=== PATIENT | male | born 1940 | race Caucasian/White ===

== ENCOUNTER 2023-03-29 10:06 | Emergency (ER) | payer MEDICARE ==
--- NOTE | 2023-03-29 10:21 | ERPHSYRPT ---
- History of Present Illness Time Seen by Provider: 03/29/23 10:20 Historian: patient, family Exam Limitations: no limitations Physician History: This is an 82-year-old white male patient brought to the emergency department from the physical therapy department with his daughter after the patient was experiencing shortness of breath and numbness to his right upper extremity in the physical therapy department. He was there to receive physical therapy post knee surgery. He was also found to be hypotensive briefly, with a systolic blood pressure in the 90s. He arrives to the emergency department and his systolic blood pressure had normalized. However, he has persistent shortness of breath and right arm numbness. A twelve-lead EKG was evaluated interpreted by marilu navarro as a STEMI in the inferior leads. We started the STEMI protocol and repeated the twelve-lead EKG which showed persistence of what I felt was a STEMI. I contacted the emergency department at [facility], at the request of the family, and sent the twelve-lead EKG x2 to Dr. Thomas, the emergency department physician on. The winderman did evaluate the twelve-lead EKG. Although, he felt that there was no acute STEMI, they accepted the patient in transfer. Patient has a history of atrial fibrillation hypertension and is on Coumadin. He takes his Coumadin every evening. Timing/Duration: today Quality: pressure Location: substernal, central (Chest pressure) Chest Pain Radiation: arm (Right arm numbness) Severity of Pain-Max: mild Severity of Pain-Current: mild Modifying Factors: Improves With: nothing Associated Symptoms: shortness of breath Prior Chest Pain/Cardiac Workup: cardiac cath Nitro Today/Relief: 0.4 mg x 1, provided by ED Aspirin Treatment Today: 81 mg x 4, provided by ED Allergies/Adverse Reactions: No Known Drug Allergies Allergy (Unverified 03/29/23 10:24) Home Medications: Warfarin Sodium 5 mg [Jantoven] 0 mg PO UD 03/02/22 [History] dilTIAZem HCL [Diltiazem 24Hr ER] 240 mg PO DAILY 03/02/22 [History] hydroCHLOROthiazide [Hydrochlorothiazide] 12.5 mg PO DAILY 03/02/22 [History] lisinopriL [Lisinopril] 40 mg PO DAILY 03/02/22 [History] Oxycodone / APAP 10/325 mg [Oxycodone-Acetaminophen 10-325] 1 tab PO Q4- 6HPRN PRN 03/29/23 [History] Travel Risk - International Travel Have you traveled outside of the country in past 3 weeks: No - Coronavirus Screening Are you exhibiting any of the following symptoms?: No Close contact with a COVID-19 positive Pt in past 14-21 Days: No - Review of Systems Constitutional: No Symptoms Eyes: No Symptoms Ears, Nose, & Throat: No Symptoms Respiratory: Dyspnea Cardiac: Chest Pain Abdominal/Gastrointestinal: No Symptoms (Scribed as a light pressure) Genitourinary Symptoms: No Symptoms Musculoskeletal: No Symptoms Skin: No Symptoms Neurological: Parasthesia (Right arm numbness) Psychological: No Symptoms Endocrine: No Symptoms Hematologic/Lymphatic: No Symptoms Immunological/Allergic: No Symptoms All Other Systems: Reviewed and Negative - Past Medical History Pertinent Past Medical History: Yes Neurological History: No Pertinent History Cardiac History: Arrhythmia, Hypertension Respiratory History: No Pertinent History Endocrine Medical History: No Pertinent History Musculoskeletal History: Arthritis GI Medical History: No Pertinent History History: No Pertinent History Psycho-Social History: No Pertinent History Male Reproductive Disorders: No Pertinent History Other Medical History: A-FIB - Past Surgical History Past Surgical History: Yes - Nursing Vital Signs Nursing Vital Signs: Initial Vital Signs Temperature 97 F 03/29/23 10:08 Pulse Rate 102 H 03/29/23 10:08 Respiratory Rate 12 03/29/23 10:08 Blood Pressure 137/88 03/29/23 10:08 O2 Sat by Pulse Oximetry 98 03/29/23 10:08 Pain Scale Pain Intensity 7 - Physical Exam General Appearance: no apparent distress, alert, anxiety, obese Eye Exam: PERRL/EOMI, eyes nml inspection Ears, Nose, Throat Exam: normal ENT inspection, moist mucous membranes Neck Exam: normal inspection, non-tender, supple, full range of motion Respiratory Exam: normal breath sounds, chest tenderness, lungs clear (Scribed as a light pressure), airway intact, No respiratory distress Cardiovascular Exam: irregular Gastrointestinal/Abdomen Exam: soft, normal bowel sounds, No tenderness Back Exam: normal inspection, normal range of motion, No CVA tenderness, No vertebral tenderness Extremity Exam: normal inspection, normal range of motion, pelvis stable Neurologic Exam: alert, oriented x 3, cooperative, 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 nml as tested, normal mood/affect, nml cerebellar function, nml station & gait, sensation nml Skin Exam: normal color, warm, dry Lymphatic Exam: No adenopathy SpO2 Interpretation: normal O2 Delivery: Room Air - Course Nursing assessment & vital signs reviewed: Yes EKG Interpreted by Me: RATE (95), Sinus Rhythm, LAFB, Right Bundle Branch Block, ST Elev (Finger leads), Other (There appears to be ST elevation in the inferior leads on this first twelve-lead EKG.) Ordered Tests: Medication Summary Discontinued Medications Generic Name Dose Route Start Last Admin Trade Name Freq PRN Reason Stop Dose Admin Aspirin 324 mg 03/29/23 10:27 03/29/23 10:31 Aspirin 81 Mg Tab.Chew PO 03/29/23 10:28 324 mg STAT ONE Administration Heparin Sodium (Beef Lung) 5,000 unit 03/29/23 10:28 03/29/23 10:32 Heparin 5000 Units/0.5 Ml 5,000 Unit/0.5 Ml Syr IV 03/29/23 10:29 5,000 unit STAT ONE Administration Nitroglycerin/Dextrose 250 mls @ 1.5 mls/hr 03/29/23 10:27 Ntg 0.2mg/Ml In D5w Glass IV 04/28/23 10:26 .Q24H PRN CHEST PAIN Protocol 5 MCG/MIN Nitroglycerin 0.4 mg 03/29/23 10:42 03/29/23 10:30 Nitroglycerin 0.4 Mg (Ed) 0.4 Mg Tab.Subl SL 03/29/23 10:43 0.4 mg STAT ONE Administration Lab/Rad Data: Laboratory Result Diagrams 03/29/23 10:27 03/29/23 10:20 Laboratory Results 03/29/23 03/29/23 03/29/23 Range/Units 10:27 10:20 10:20 WBC 8.4 (4.0-10.5) x10^3/uL RBC 4.05 L (4.1-5.6) x10^6/uL Hgb 13.0 (12.5-18.0) g/dL Hct 38.8 L (42-50) % MCV 95.8 (78-100) fL MCH 32.1 H (26-32) pg MCHC 33.5 (32-36) g/dL RDW 13.0 (11.5-14.0) % Plt Count 443 (150-450) x10^3/uL MPV 9.4 (7.5-11.0) fL Gran % 73.2 H (36.0-66.0) % Immature Gran % (Auto) 0.4 (0.00-0.4) % Nucleat RBC Rel Count 0.0 (0.00-0.1) % Eos # (Auto) 0.11 (0-0.5) x10^3/uL Immature Gran # (Auto) 0.03 (0.00-0.03) x10^3u/L Absolute Lymphs (auto) 1.28 (1.0-4.6) x10^3/uL Absolute Monos (auto) 0.79 (0.0-1.3) x10^3/uL Absolute Nucleated RBC 0.00 (0.00-0.01) x10^3u/L Lymphocytes % 15.3 L (24.0-44.0) % Monocytes % 9.4 (0.0-12.0) % Eosinophils % 1.3 (0.00-5.0) % Basophils % 0.4 (0.0-0.4) % Absolute Granulocytes 6.14 (1.4-6.9) x10^3/uL Basophils # 0.03 (0-0.4) x10^3/uL PT 23.5 H (9.4-12.5) SECONDS INR 2.29 (0.8-3.0) APTT 40.9 H (25.1-36.5) SECONDS D-Dimer 6.14 H* (0.0-0.50) mg/L Sodium (137-145) mmol/L Potassium (3.5-5.1) mmol/L Chloride (98-107) mmol/L Carbon Dioxide (22-30) mmol/L Anion Gap (5-15) MEQ/L BUN (9-20) mg/dL Creatinine (0.66-1.25) mg/dL Estimated GFR ML/MIN Glucose (74-106) mg/dL Calcium (8.4-10.2) mg/dL Total Bilirubin (0.2-1.3) mg/dL AST (17-59) U/L ALT (0-50) U/L Alkaline Phosphatase (38-126) U/L Troponin I < 0.012 (0.000-0.034) ng/mL NT-Pro-B Natriuret Pep (<300) pg/mL Serum Total Protein (6.3-8.2) g/dL Albumin (3.5-5.0) g/dL 03/29/23 Range/Units 10:20 WBC (4.0-10.5) x10^3/uL RBC (4.1-5.6) x10^6/uL Hgb (12.5-18.0) g/dL Hct (42-50) % MCV (78-100) fL MCH (26-32) pg MCHC (32-36) g/dL RDW (11.5-14.0) % Plt Count (150-450) x10^3/uL MPV (7.5-11.0) fL Gran % (36.0-66.0) % Immature Gran % (Auto) (0.00-0.4) % Nucleat RBC Rel Count (0.00-0.1) % Eos # (Auto) (0-0.5) x10^3/uL Immature Gran # (Auto) (0.00-0.03) x10^3u/L Absolute Lymphs (auto) (1.0-4.6) x10^3/uL Absolute Monos (auto) (0.0-1.3) x10^3/uL Absolute Nucleated RBC (0.00-0.01) x10^3u/L Lymphocytes % (24.0-44.0) % Monocytes % (0.0-12.0) % Eosinophils % (0.00-5.0) % Basophils % (0.0-0.4) % Absolute Granulocytes (1.4-6.9) x10^3/uL Basophils # (0-0.4) x10^3/uL PT (9.4-12.5) SECONDS INR (0.8-3.0) APTT (25.1-36.5) SECONDS D-Dimer (0.0-0.50) mg/L Sodium 135 L (137-145) mmol/L Potassium 3.9 (3.5-5.1) mmol/L Chloride 101 (98-107) mmol/L Carbon Dioxide 24 (22-30) mmol/L Anion Gap 14.6 (5-15) MEQ/L BUN 15 (9-20) mg/dL Creatinine 0.92 (0.66-1.25) mg/dL Estimated GFR > 60.0 ML/MIN Glucose 122 H (74-106) mg/dL Calcium 9.4 (8.4-10.2) mg/dL Total Bilirubin 0.40 (0.2-1.3) mg/dL AST 21 (17-59) U/L ALT 18 (0-50) U/L Alkaline Phosphatase 89 (38-126) U/L Troponin I (0.000-0.034) ng/mL NT-Pro-B Natriuret Pep 212 (<300) pg/mL Serum Total Protein 6.7 (6.3-8.2) g/dL Albumin 4.0 (3.5-5.0) g/dL - Progress Progress: re-examined, unchanged Air Movement: good Progress Note: 03/29/23 10:50 Repeat, second twelve-lead EKG showed heart rate of 94 bpm in sinus rhythm with 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 There appears to me to be persistent ST elevation in leads II, III, aVF. This patient's medical issue is 1 of high complexity. Level complexity in the work-up performed is based on review of the patient's past medical history, review the patient's medication list, review of the patient's drug allergy list, history of present illness and physical findings on examination. I reviewed t he twelve-lead EKG and interpreted as a STEMI. We repeated the twelve-lead EKG and there is persistence of this ST elevation on my interpretation. I discussed with emergency room physician Dr. Thomas, at [facility] in [facility]. That this is where the family wanted the patient to be taken to. The winderman reviewed the twelve-lead EKG per Dr. Thomas, and the winderman felt this is not a STEMI. However they do accept the patient in transfer. The patient received 4 baby aspirin, heparin 5000 units IV bolus and 1 nitroglycerin sublingually. 0.4 mg. Blood Culture(s) Obtained: No Antibiotics given: No Counseled pt/family regarding: lab results, diagnosis Medical Desision Making - Independent Historian Additional History obtained from: Child - Discussion of managment Care discussed with:: specialist (Emergency room physician at [facility]) Reviewed:: Test results, Need for additional workup ( Ivonne) Will see patient: in ED - Diagnostic Testing Diagnostic test were ordered, analyzed, and reviewed by me: Yes - Risk of complications The pt has a high risk of morbidity or mortality based on: Decision regarding hospitilization or escalation of hosp level of care - Departure Departure Disposition: Transfer Clinical Impression: Chest pain, Right arm numbness, Shortness of breath Condition: Fair Critical Care Time: Yes Critical Care Time(excluding separately billable procedures): Critical 30-74 mins (30 minutes) Referrals: MARCELA BINGHAM MD [Primary Care Provider] - Follow up/PCP as directed
[2023-03-29] MEDS ORDERED: Ntg 0.2MG/Ml in D5W GLASS*** 250 ML IV PRN (10:27)
[2023-03-29] MEDS ORDERED: BABY ASPIRIN 81 MG CHEW PO ONE (10:27)
[2023-03-29] MEDS ORDERED: HEPARIN 5000 UNITS/0.5 ML (HIGH RISK MED) IV ONE (10:28)
[2023-03-29 10:33] VITALS: TEMP 97; O2SAT 98
[2023-03-29 10:37] LABS: Absolute Neutrophil Ct (ANC) 6.14 x10^3/uL (1.4-6.9); BASOPHIL % 0.4 % (0.0-0.4); Basophil (Absolute #) 0.03 x10^3/uL (0-0.4); Eosinophil % 1.3 % (0.00-5.0); Eosinophil (Absolute #) 0.11 x10^3/uL (0-0.5); Hematocrit 38.8 % (42-50); IMMATURE GRAN # 0.03 x10^3u/L (0.00-0.03); IMMATURE GRAN % 0.4 % (0.00-0.4); Lymphocyte (Absolute #) 1.28 x10^3/uL (1.0-4.6); Lymphocytes % 15.3 % (24.0-44.0); Mean Cell Volume 95.8 fL (78-100); Mean Corpuscular Hemoglobin 32.1 pg (26-32); Mean Corpuscular Hgb Concent. 33.5 g/dL (32-36); Mean Platelet Volume 9.4 fL (7.5-11.0); Monocyte (Absolute #) 0.79 x10^3/uL (0.0-1.3); Monocytes % 9.4 % (0.0-12.0); Neutrophil % 73.2 % (36.0-66.0); Platelet Count 443 x10^3/uL (150-450); Red Blood Count 4.05 x10^6/uL (4.1-5.6); White Blood Count 8.4 x10^3/uL (4.0-10.5)
[2023-03-29] MEDS ORDERED: Nitrostat 0.4 MG (ED) SL ONE (10:42)
[2023-03-29 10:45] VITALS: BP 136/72; PULSE 111; RESP 18
[2023-03-29 11:01] LABS: INR 2.29 (0.8-3.0); PROTIME 23.5 SECONDS (9.4-12.5); PTT 40.9 SECONDS (25.1-36.5)
[2023-03-29 11:02] LABS: ALKALINE PHOSPHATASE 89 U/L (38-126); ANION GAP 14.6 MEQ/L (5-15); BLOOD UREA NITROGEN 15 mg/dL (9-20); CHLORIDE 101 mmol/L (98-107); Calcium 9.4 mg/dL (8.4-10.2); Carbon Dioxide 24 mmol/L (22-30); Creatinine 1 0.92 mg/dL (0.66-1.25); D-DIMER QUANTITATIVE 6.14 mg/L (0.0-0.50); EST GLOMERULAR FILTRATION RATE > 60.0 ML/MIN; Glucose 122 mg/dL (74-106); NT PRO BNPII 212 pg/mL (<300); Potassium 3.9 mmol/L (3.5-5.1); SGOT/AST 21 U/L (17-59); SGPT/ALT 18 U/L (0-50); SODIUM 135 mmol/L (137-145); Total Protein 6.7 g/dL (6.3-8.2)
== END 2023-03-29 10:30 | disposition short-term general hospital (02) ==
LOC: ED 10:06
DX: R07.9 Chest pain, unspecified (principal); R20.2 Paresthesia of skin; R06.02 Shortness of breath; I21.3 ST elevation (STEMI) myocardial infarction of unspecified site; I10 Essential (primary) hypertension; Z79.01 Long term (current) use of anticoagulants; Z79.891 Long term (current) use of opiate analgesic; Z79.899 Other long term (current) drug therapy
CPT/HCPCS: 36000; 36415; 80053; 83880; 84484; 85025; 85379; 85610; 85730; 93005; 93041; 94760; 96374; 99285; 99291; J1644; A9270-GY

== ENCOUNTER 2023-04-08 00:17 | Observation (INO) | payer MEDICARE ==
[2023-04-08] MEDS ORDERED: Nitrostat 0.4 MG (ED) SL ONE (00:40)
--- NOTE | 2023-04-08 00:40 | ERPHSYRPT ---
- History of Present Illness Time Seen by Provider: 04/08/23 00:23 Historian: patient Exam Limitations: no limitations Physician History: Pt states he has had intermittent chest tightness for the past 2 weeks. For the past 2 hours pt has had a non-priductive cough and BP of 210 systolic. Pt denies headache, vomiting, dysuria but admits to shortness of air at times. Aspirin Treatment Today: unknown Allergies/Adverse Reactions: No Known Drug Allergies Allergy (Verified 04/08/23 00:27) Home Medications: Warfarin Sodium 5 mg [Jantoven] 0 mg PO UD 03/02/22 [History] dilTIAZem HCL [Diltiazem 24Hr ER] 240 mg PO DAILY 03/02/22 [History] lisinopriL [Lisinopril] 20 mg PO DAILY 03/02/22 [History] Acetaminophen 325 mg [Tylenol 325 mg] 650 mg PO Q6H PRN PRN 04/08/23 [History] Hx Tetanus, Diphtheria Vaccination/Date Given: No Hx Influenza Vaccination/Date Given: No Hx Pneumococcal Vaccination/Date Given: No Travel Risk - Vaccine Status Have you recieved a Covid-19 vaccination: Yes Supervisor Conditioning Yard: Unknown - Vaccination Dates Dates if Unknown: 2021 - Review of Systems Ears, Nose, & Throat: No Throat Pain Respiratory: Cough, Dyspnea Cardiac: Other (chest tightness) Abdominal/Gastrointestinal: No Abdominal Pain, No Nausea, No Vomiting Genitourinary Symptoms: No Dysuria Neurological: No Headache - Past Medical History Pertinent Past Medical History: Yes Neurological History: No Pertinent History Cardiac History: Arrhythmia, Hypertension Respiratory History: No Pertinent History Endocrine Medical History: No Pertinent History Musculoskeletal History: Arthritis GI Medical History: No Pertinent History History: No Pertinent History Psycho-Social History: No Pertinent History Male Reproductive Disorders: No Pertinent History Other Medical History: A-FIB - Past Surgical History Past Surgical History: Yes Neuro Surgical History: No Pertinent History Cardiac: No Pertinent History Respiratory: No Pertinent History Gastrointestinal: No Pertinent History Genitourinary: No Pertinent History Musculoskeletal: Orthopedic Surgery Male Surgical History: No Pertinent History Other Surgical History: Left knee replacement - Social History Smoking Status: Former smoker Exposure to second hand smoke: No Drug Use: none Patient Lives Alone: Yes - Nursing Vital Signs Nursing Vital Signs: Initial Vital Signs Temperature 97.8 F 04/08/23 00:27 Pulse Rate 96 H 04/08/23 00:27 Respiratory Rate 20 04/08/23 00:27 Blood Pressure 171/100 04/08/23 00:27 O2 Sat by Pulse Oximetry 97 04/08/23 00:27 Pain Scale Pain Intensity 8 - Physical Exam General Appearance: alert, anxiety Eye Exam: PERRL/EOMI Ears, Nose, Throat Exam: TMs normal, pharynx normal Neck Exam: normal inspection Respiratory Exam: lungs clear Cardiovascular Exam: normal heart sounds Gastrointestinal/Abdomen Exam: normal bowel sounds Extremity Exam: swelling (swelling and warmth of left knee) Neurologic Exam: alert, cooperative SpO2 Interpretation: normal SpO2: 97 O2 Delivery: Room Air - Course Nursing assessment & vital signs reviewed: Yes EKG Interpreted by Me: RATE (93), Sinus Rhythm, Left Quimby Deviation, Right Bundle Branch Block, Other (QTc = 486; LAFB) - Radiology Exams Chest X-ray Interpretation: Interpreted by me, No Pneumonia - CT Exams Chest CT Interpretation: Tele-radiologist Report (Negative study for pulmonary embolism. Bilateral pulmonary nodules as detailed, nodule of concern is seen on right mid lung lobe medial segment nodule with irregular outlines measuring 11 x 10 mm is seen on axial image , follow up is needed. Left adrenal 2.7 x 2 cm lesion.) Ordered Tests: Active Orders 24 hr Category Date Time Status Bedrest ROUTINE Activity 04/08/23 04:05 Active Call Admit Doctor for Orders ON ADMISSION Care 04/08/23 04:03 Active Foot Piece Assembler STAT Care 04/08/23 00:41 Active Code Status Order ROUTINE Care 04/08/23 04:03 Active EKG-ER Only STAT Care 04/08/23 00:40 Active IV Insertion STAT Care 04/08/23 00:40 Active Oxygen-ED Only Nasal Cannula 2 lpm Care 04/08/23 00:[address] in Observation ROUTINE Care 04/08/23 04:03 Active Pulse Oximetry (ED) STAT Care 04/08/23 00:40 Active Telemetry q6h Care 04/08/23 04:03 Active Heart-Healthy Diet Diet 04/08/23 Breakfast Active CHEST 2 VIEWS (PA AND LAT) Stat Exams 04/08/23 00:41 Taken CHEST WITH CONTRAST [CT] Stat Exams 04/08/23 01:25 Completed BLOOD CULTURE Stat Lab 04/08/23 01:10 Ordered CBC W DIFF Stat Lab 04/08/23 00:50 Completed CMP Stat Lab 04/08/23 00:50 Completed D-DIMER QUANTITATIVE Stat Lab 04/08/23 00:50 Completed Manual Differential NC Stat Lab 04/08/23 00:50 Completed PROTIME WITH INR Stat Lab 04/08/23 00:50 Completed PTT Stat Lab 04/08/23 00:50 Completed TROPONIN AM.LAB Lab 04/09/23 04:00 Ordered TROPONIN Q4H Lab 04/08/23 00:50 Completed TROPONIN Q4H Lab 04/08/23 04:45 Ordered TROPONIN Q4H Lab 04/08/23 08:45 Ordered EKG REPEAT IN AM RT 04/08/23 04:03 Active Oxygen Nasal Cannula 2 lpm RT 04/08/23 04:03 Active Medication Summary Generic Name Dose Route Start Last Admin Trade Name Freq PRN Reason Stop Dose Admin Sodium Chloride 1,000 mls @ 100 mls/hr 04/08/23 00:45 04/08/23 01:05 Sodium Chloride 0.9% 1000 Ml IV 05/08/23 00:44 100 mls/hr .Q10H ANDRE Administration Clindamycin HCl/Dextrose 600 mg in 50 mls @ 100 mls/hr 04/08/23 06:00 Clindamycin-D5w 600 Mg/50 Ml IV 05/08/23 05:59 Q8HT ANDRE Discontinued Medications Generic Name Dose Route Start Last Admin Trade Name Freq PRN Reason Stop Dose Admin Clindamycin HCl/Dextrose 900 mg in 50 mls @ 100 mls/hr 04/08/23 00:42 04/08/23 01:43 Clindamycin-D5w 900 Mg/50 Ml IV 04/08/23 01:11 Infused STAT STA Infusion Clindamycin HCl/Dextrose Confirm 04/08/23 01:04 Clindamycin-D5w 900 Mg/50 Ml Administered 04/08/23 01:05 Dose 900 mg in 50 mls @ ud IV .STK-MED ONE Lorazepam 0.5 mg 04/08/23 03:59 04/08/23 04:07 Lorazepam 0.5 Mg Tablet PO 04/08/23 04:00 Not Given STAT ONE Lorazepam Confirm 04/08/23 04:03 Lorazepam 1 Mg Tablet Administered 04/08/23 04:04 Dose 1 mg .ROUTE .STK-MED ONE Lorazepam 0.5 mg 04/08/23 04:07 04/08/23 04:08 Lorazepam 1 Mg Tablet PO 04/08/23 04:08 0.5 mg STAT ONE Administration Nitroglycerin 0.4 mg 04/08/23 00:40 04/08/23 00:55 Nitroglycerin 0.4 Mg (Ed) 0.4 Mg Tab.Subl SL 04/08/23 00:41 0.4 mg STAT ONE Administration Lab/Rad Data: Laboratory Result Diagrams 04/08/23 00:50 04/08/23 00:50 Laboratory Results 04/08/23 04/08/23 04/08/23 Range/Units 00:50 00:50 00:50 WBC (4.0-10.5) x10^3/uL RBC (4.1-5.6) x10^6/uL Hgb (12.5-18.0) g/dL Hct (42-50) % MCV (78-100) fL MCH (26-32) pg MCHC (32-36) g/dL RDW (11.5-14.0) % Plt Count (150-450) x10^3/uL MPV (7.5-11.0) fL Segmented Neutrophils (36.-66.) % Lymphocytes (Manual) (24-44) % Monocytes (Manual) (0.0-12.0) % Atypical Lymphocytes % Platelet Estimate (NORMAL) RBC Morphology PT 33.8 H (9.4-12.5) SECONDS INR 3.39 H (0.8-3.0) APTT 47.0 H (25.1-36.5) SECONDS D-Dimer 2.79 H* (0.0-0.50) mg/L Sodium 134 L (137-145) mmol/L Potassium 3.8 (3.5-5.1) mmol/L Chloride 103 (98-107) mmol/L Carbon Dioxide 24 (22-30) mmol/L Anion Gap 10.8 (5-15) MEQ/L BUN 11 (9-20) mg/dL Creatinine 0.79 (0.66-1.25) mg/dL Estimated GFR > 60.0 ML/MIN Glucose 128 H (74-106) mg/dL Calcium 8.6 (8.4-10.2) mg/dL Total Bilirubin 0.40 (0.2-1.3) mg/dL AST 36 (17-59) U/L ALT 30 (0-50) U/L Alkaline Phosphatase 83 (38-126) U/L Troponin I < 0.012 (0.000-0.034) ng/mL Serum Total Protein 6.6 (6.3-8.2) g/dL Albumin 3.8 (3.5-5.0) g/dL 04/08/23 Range/Units 00:50 WBC 4.8 (4.0-10.5) x10^3/uL RBC 3.79 L (4.1-5.6) x10^6/uL Hgb 12.0 L (12.5-18.0) g/dL Hct 35.8 L (42-50) % MCV 94.5 (78-100) fL MCH 31.7 (26-32) pg MCHC 33.5 (32-36) g/dL RDW 12.8 (11.5-14.0) % Plt Count 303 (150-450) x10^3/uL MPV 9.2 (7.5-11.0) fL Segmented Neutrophils 62 (36.-66.) % Lymphocytes (Manual) 28 (24-44) % Monocytes (Manual) 8 (0.0-12.0) % Atypical Lymphocytes 2 % Platelet Estimate NORMAL (NORMAL) RBC Morphology NORMAL PT (9.4-12.5) SECONDS INR (0.8-3.0) APTT (25.1-36.5) SECONDS D-Dimer (0.0-0.50) mg/L Sodium (137-145) mmol/L Potassium (3.5-5.1) mmol/L Chloride (98-107) mmol/L Carbon Dioxide (22-30) mmol/L Anion Gap (5-15) MEQ/L BUN (9-20) mg/dL Creatinine (0.66-1.25) mg/dL Estimated GFR ML/MIN Glucose (74-106) mg/dL Calcium (8.4-10.2) mg/dL Total Bilirubin (0.2-1.3) mg/dL AST (17-59) U/L ALT (0-50) U/L Alkaline Phosphatase (38-126) U/L Troponin I (0.000-0.034) ng/mL Serum Total Protein (6.3-8.2) g/dL Albumin (3.5-5.0) g/dL - Progress Progress: unchanged Antibiotics given: Yes Discussed with DrSiria: Other (Spoke with Dr. Collado - obs) Will see patient in: hospital (observation) Counseled pt/family regarding: lab results, diagnosis, rad results Medical Desision Making - Diagnostic Testing Diagnostic test were ordered, analyzed, and reviewed by me: Yes Radiological Interpretation: Teleradiologist Report - Departure Departure Disposition: Observation Clinical Impression: Chest tightness, Cellulitis of left knee Condition: Stable Critical Care Time: No [facility]errals: [facility] [Primary Care Provider] - Follow up/PCP as directed
[2023-04-08] MEDS ORDERED: CLINDAMYCIN-D5W 900 MG/50 ML*** 900 MG/50 ML BAG IV STA (00:42)
[2023-04-08 01:00] LABS: Hematocrit 35.8 % (42-50); Mean Cell Volume 94.5 fL (78-100); Mean Corpuscular Hemoglobin 31.7 pg (26-32); Mean Corpuscular Hgb Concent. 33.5 g/dL (32-36); Mean Platelet Volume 9.2 fL (7.5-11.0); Platelet Count 303 x10^3/uL (150-450); Red Blood Count 3.79 x10^6/uL (4.1-5.6); Red Cell Distribution Width 12.8 % (11.5-14.0); White Blood Count 4.8 x10^3/uL (4.0-10.5)
[2023-04-08] MEDS ORDERED: CLINDAMYCIN-D5W 900 MG/50 ML*** 900 MG/50 ML BAG IV ONE (01:04)
[2023-04-08] MEDS: Sodium Chloride 0.9% 1000 ML 1,000 ML IV SCH ×2 (01:05→08:45)
[2023-04-08 01:14] LABS: ALBUMIN 3.8 g/dL (3.5-5.0); ALKALINE PHOSPHATASE 83 U/L (38-126); ANION GAP 10.8 MEQ/L (5-15); BLOOD UREA NITROGEN 11 mg/dL (9-20); CHLORIDE 103 mmol/L (98-107); Calcium 8.6 mg/dL (8.4-10.2); Carbon Dioxide 24 mmol/L (22-30); Creatinine 1 0.79 mg/dL (0.66-1.25); EST GLOMERULAR FILTRATION RATE > 60.0 ML/MIN; Glucose 128 mg/dL (74-106); Potassium 3.8 mmol/L (3.5-5.1); SGOT/AST 36 U/L (17-59); SGPT/ALT 30 U/L (0-50); SODIUM 134 mmol/L (137-145); Total Protein 6.6 g/dL (6.3-8.2)
[2023-04-08 01:22] LABS: INR 3.39 (0.8-3.0); PROTIME 33.8 SECONDS (9.4-12.5)
[2023-04-08 01:24] LABS: D-DIMER QUANTITATIVE 2.79 mg/L (0.0-0.50)
[2023-04-08 01:38] LABS: ATYPICAL LYMPHS 2 %; Lymphocytes 28 % (24-44); Monocyte 8 % (0.0-12.0); Neutrophils 62 % (36.-66.); Platelet Estimate NORMAL (NORMAL); Total Cells Counted 100
--- NOTE | 2023-04-08 03:23 | XRAY ---
CLINICAL HISTORY:R/O PE COMPARISON:None TECHNIQUE:Axial CT pulmonary angiography images through the chest were acquired with intravenous contrast administration. Coronal, sagittal, and volume reconstructions were performed. FINDINGS: Vascular: No filling defect within the pulmonary arteries to the segmental branch level. Atherosclerotic aorta calcifications are seen. Grossly unremarkable sized heart. No definite abnormality is seen on reformatted images. Lungs: Right mid-lung lobe medial segment nodule with irregular outlines measuring 11 x 10 mm is seen on axial image 30/73. ser 3 . Left lower lung lobe subpleural nodule measuring 1.3 x 0.9 cm is seen on axial image #37/73 ser 3 with smooth borders. Left upper lobe subpleural calcified nodule measuring 2 mm is seen. Few other smaller nodules are seen. No obvious pulmonary infiltrates. The airway is clear. No pneumothorax. No effusions are identified. Soft Tissues: No mediastinal, axillary or supraclavicular adenopathy isidentified. Bony structures: No acute or destructive abnormality Upper Abdomen: Limited visualization of the solid upper abdominal organs shows left adrenal 2.7 x 2 cm lesion , dedicated CT adrenal protocol CT correlation is advised, left renal cortical cyst and bulky spleen with subcapsular calcification . IMPRESSION: 1. Negative study for pulmonary embolism. 2. Bilateral pulmonary nodules as detailed, nodule of concern in seen on right mid lung lobe medial segment nodule with irregular outlines measuring 11x10 mm is seen on axial image 30/73, follow up is needed. 3. Left adrenal 2.7 x 2 cm lesion , dedicated CT adrenal protocol CT correlation is advised. 4. 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 Electronically Signed by: Blanquita Umaña MD. (04/08/2023 02:21:58 NATURAL GAS ENGINEER)
[2023-04-08] MEDS ORDERED: Ativan 0.5 MG PO ONE (03:59)
[2023-04-08] MEDS ORDERED: Ativan 1 MG ONE (04:03)
[2023-04-08] MEDS ORDERED: Ativan 1 MG PO ONE (04:07)
[2023-04-08] MEDS ORDERED: PHENERGAN 25 MG PO PRN (04:16)
[2023-04-08] MEDS ORDERED: TYLENOL 325 MG PO PRN (04:16)
--- NOTE | 2023-04-08 04:28 | PCM.HP ---
History of Present Illness - Chief Complaint Chief Complaint: Chest tightness; cellulitis of left knee History of Present Illness: is a 82 year old male with hx of AFib, HTN, Arthritis here with c/o chest tightness x 2 weeks with recent onset of non-productive cough. No fever, chills, sweats, nausea, vomiting or diarrhea. Chest tightness mid-sternal, no radiation, not associated with SOB, diaphoresis, syncope. EKG and trop unremarkable on initial work-up. ER physician noticed left knee that is not and swollen, so he is being admitted for chest pain rule out and left knee cellulitis. He had left knee surgery 4 weeks, and it is still a bit tender and swollen, but they all told him it is healing nicely - Review of Systems Constitutional: No Symptoms Eyes: No Symptoms Ears, Nose, & Throat: No Symptoms Respiratory: Cough Cardiac: Chest Pain Abdominal/Gastrointestinal: No Symptoms Genitourinary Symptoms: No Symptoms Musculoskeletal: Arthralgias, Joint Pain, Joint Swelling Skin: No Symptoms Neurological: No Symptoms Psychological: No Symptoms Endocrine: No Symptoms Hematologic/Lymphatic: No Symptoms Immunological/Allergic: No Symptoms Medications & Allergies Home Medications: Home Medication List Warfarin Sodium 5 mg [Jantoven] 0 mg PO UD 03/02/22 [History Confirmed 04/08/23] dilTIAZem HCL [Diltiazem 24Hr ER] 240 mg PO DAILY 03/02/22 [History Confirmed 04/08/23] lisinopriL [Lisinopril] 20 mg PO DAILY 03/02/22 [History Confirmed 04/08/23] Acetaminophen 325 mg [Tylenol 325 mg] 650 mg PO Q6H PRN PRN 04/08/23 [History Confirmed 04/08/23] Allergies/Adverse Reactions: Allergies Allergy/AdvReac Type Severity Reaction Status Date / Time No Known Drug Allergies Allergy Verified 04/08/23 00:27 - Past Medical History Past Medical History: Yes Neurological History: No Pertinent History ENT History: No Pertinent History Cardiac History: Arrhythmia, Hypertension Respiratory History: No Pertinent History Endocrine Medical History: No Pertinent History Musculoskelatal History: Arthritis GI Medical History: No Pertinent History History: No Pertinent History Pyscho-Social History: No Pertinent History Male Reproductive Disorders: No Pertinent History Comment: A-FIB - Past Surgical History Past Surgical History: Yes Neuro Surgical History: No Pertinent History Cardiac History: No Pertinent History Respiratory Surgery: No Pertinent History GI Surgical History: No Pertinent History Genitourinary Surgical Hx: No Pertinent History Musculskeletal Surgical Hx: Orthopedic Surgery Male Surgical History: No Pertinent History Other Surgical History: Left knee replacement - Social History Smoking Status: Former smoker Exposure to second hand smoke: No Alcohol: None Drug Use: none Significant Family History: no pertinent family hx - Physical Exam Vital Signs: Vital Signs - 24 hr Temp Pulse Pulse Resp BP BP Pulse Ox 04/08/23 04:09 97 04/08/23 04:00 96 H 17 151/85 98 04/08/23 03:30 104 H 17 142/76 98 04/08/23 03:00 88 17 146/75 98 04/08/23 02:39 91 H 21 134/74 92 L 04/08/23 01:00 99 H 18 135/85 97 04/08/23 00:40 100 04/08/23 00:30 108 H 20 158/92 95 04/08/23 00:27 97.8 F 96 H 98 H 20 171/100 97 General Appearance: no apparent distress Neurologic Exam: alert, oriented x 3, cooperative Eye Exam: PERRL/EOMI, eyes nml inspection Ears, Nose, Throat Exam: normal ENT inspection Neck Exam: normal inspection, supple Respiratory Exam: normal breath sounds, lungs clear Cardiovascular Exam: normal heart sounds, irregular Gastrointestinal/Abdomen Exam: normal bowel sounds Rectal Exam: deferred Back Exam: normal inspection Extremity Exam: normal inspection Skin Exam: normal color Results - Labs Lab/Micro Results: Lab Results-Last 24 Hours 04/08/23 04/08/23 04/08/23 Range/Units 00:50 00:50 00:50 WBC 4.8 (4.0-10.5) x10^3/uL RBC 3.79 L (4.1-5.6) x10^6/uL Hgb 12.0 L (12.5-18.0) g/dL Hct 35.8 L (42-50) % MCV 94.5 (78-100) fL MCH 31.7 (26-32) pg MCHC 33.5 (32-36) g/dL RDW 12.8 (11.5-14.0) % Plt Count 303 (150-450) x10^3/uL MPV 9.2 (7.5-11.0) fL Segmented Neutrophils 62 (36.-66.) % Lymphocytes (Manual) 28 (24-44) % Monocytes (Manual) 8 (0.0-12.0) % Atypical Lymphocytes 2 % Platelet Estimate NORMAL (NORMAL) RBC Morphology NORMAL PT 33.8 H (9.4-12.5) SECONDS INR 3.39 H (0.8-3.0) APTT 47.0 H (25.1-36.5) SECONDS D-Dimer 2.79 H* (0.0-0.50) mg/L Sodium 134 L (137-145) mmol/L Potassium 3.8 (3.5-5.1) mmol/L Chloride 103 (98-107) mmol/L Carbon Dioxide 24 (22-30) mmol/L Anion Gap 10.8 (5-15) MEQ/L BUN 11 (9-20) mg/dL Creatinine 0.79 (0.66-1.25) mg/dL Estimated GFR > 60.0 ML/MIN Glucose 128 H (74-106) mg/dL Calcium 8.6 (8.4-10.2) mg/dL Total Bilirubin 0.40 (0.2-1.3) mg/dL AST 36 (17-59) U/L ALT 30 (0-50) U/L Alkaline Phosphatase 83 (38-126) U/L Troponin I (0.000-0.034) ng/mL Serum Total Protein 6.6 (6.3-8.2) g/dL Albumin 3.8 (3.5-5.0) g/dL 04/08/23 Range/Units 00:50 WBC (4.0-10.5) x10^3/uL RBC (4.1-5.6) x10^6/uL Hgb (12.5-18.0) g/dL Hct (42-50) % MCV (78-100) fL MCH (26-32) pg MCHC (32-36) g/dL RDW (11.5-14.0) % Plt Count (150-450) x10^3/uL MPV (7.5-11.0) fL Segmented Neutrophils (36.-66.) % Lymphocytes (Manual) (24-44) % Monocytes (Manual) (0.0-12.0) % Atypical Lymphocytes % Platelet Estimate (NORMAL) RBC Morphology PT (9.4-12.5) SECONDS INR (0.8-3.0) APTT (25.1-36.5) SECONDS D-Dimer (0.0-0.50) mg/L Sodium (137-145) mmol/L Potassium (3.5-5.1) mmol/L Chloride (98-107) mmol/L Carbon Dioxide (22-30) mmol/L Anion Gap (5-15) MEQ/L BUN (9-20) mg/dL Creatinine (0.66-1.25) mg/dL Estimated GFR ML/MIN Glucose (74-106) mg/dL Calcium (8.4-10.2) mg/dL Total Bilirubin (0.2-1.3) mg/dL AST (17-59) U/L ALT (0-50) U/L Alkaline Phosphatase (38-126) U/L Troponin I < 0.012 (0.000-0.034) ng/mL Serum Total Protein (6.3-8.2) g/dL Albumin (3.5-5.0) g/dL Microbiology 04/08/23 00:42 Blood Culture Gram Stain - Final Blood Not Reportable - Radiology Impressions Radiology Exams & Impressions: Radiology Procedures Category Date Time Status CHEST 2 VIEWS (PA AND LAT) Stat Exams 04/08/23 00:41 Taken CHEST WITH CONTRAST [CT] Stat Exams 04/08/23 01:25 Completed - Other Procedures and Tests Respiratory Therapy 04/08/23 04:03 EKG REPEAT IN AM Oxygen Nasal Cannula 2 lpm Assessment/Plan (1) Chest tightness Current Visit: Yes Status: Acute Assessment & Plan: EKG and 1st trop negative. Will trend it out. No active chest pain now. PRN SL nitro Code(s): R07.89 - OTHER CHEST PAIN (2) Cellulitis of left knee Current Visit: Yes Status: Acute Assessment & Plan: Left knee cellulitis: Started Clindamycin. Code(s): L03.116 - CELLULITIS OF LEFT LOWER LIMB (3) Hyponatremia Current Visit: Yes Status: Acute Assessment & Plan: Na 134, mildly low. Started NS at 100ml/hr Code(s): E87.1 - HYPO-OSMOLALITY AND HYPONATREMIA (4) Chronic a-fib Current Visit: Yes Status: Acute Assessment & Plan: On warfarin, INR 3.39. Will hold and monitor INR. Goal INR closer to 2-3. Can resume warfarin once INR is a little lower. HR controlled. On Diltiazem Code(s): I48.20 - CHRONIC ATRIAL FIBRILLATION, UNSPECIFIED (5) Essential (primary) hypertension Current Visit: Yes Status: Acute Assessment & Plan: We will monitor BP trend here. Resuming home BP meds Code(s): I10 - ESSENTIAL (PRIMARY) HYPERTENSION Telemedicine Encounter - Telemedicine Encounter Telemedicine Encounter: The entirety of this encounter was performed via Telemedicine" THe pt gave me verbal consent to have this telemedicine visit
[2023-04-08] MEDS ORDERED: CLINDAMYCIN-D5W 600 MG/50 ML*** 600 MG/50 ML BAG IV SCH (06:00)
--- NOTE | 2023-04-08 07:16 | XRAY ---
Indication: Chest tightness. Comparison: None AP/lateral chest inflated and clear. Heart not enlarged with mildly tortuous and arteriosclerotic descending aorta. Bony thorax intact with mild degenerative changes. Impression: Nonacute chest with chronic features.
[2023-04-08] MEDS ORDERED: Protonix 40MG Tablet ONE (07:31)
[2023-04-08] MEDS ORDERED: Zestril 20 MG ONE (07:31)
[2023-04-08] MEDS ORDERED: Protonix 40MG Tablet PO SCH (10:00)
[2023-04-08] MEDS ORDERED: Cardizem CD PO SCH (10:00)
[2023-04-08] MEDS ORDERED: NON-FORMULARY ITEM (Diltiazem Hcl [Diltiazem 24hr Er] 240 MG Cap.Sa.24h) PO SCH (10:00)
[2023-04-08] MEDS ORDERED: Zestril 20 MG PO SCH (10:00)
--- NOTE | 2023-04-08 11:14 | PCM.DS ---
Discharge Summary Date of Admission: 04/08/23 04:11 Date of Discharge: 04/08/23 Admitting Physician: SERENITY GIL DO Primary Care Provider: [facility] Allergies Allergies No Known Drug Allergies Allergy (Verified 04/08/23 00:27) Hospital Summary - Hospital Course Hospital Course: is a 82 year old male with hx of AFib, HTN, Arthritis. He was admitted last night c/o chest tightness intermittently x 2 weeks with recent onset of non-productive cough. No fever, chills, sweats, nausea, vomiting or diarrhea. Chest tightness mid-sternal, no radiation, not associated with SOB, diaphoresis, syncope. He feels it may be related to anxiety. He reports having these episodes since having knee surgery. Driving around or visiting family helps to reduce sxs. He is wanting to go home with medication for sxs. EKG and trop x3 unremarkable. ER physician noticed left knee that is swollen. However, he had left knee surgery 4 weeks, and it is still a bit tender and swollen. No erythema. Orthopedics recently told him it is healing nicely and he has a f/u appointment Monday. Sx have resolved since admission and he is wanting to go home today. He denies chest pain or pressure, SOB, abd pain, N/V/D. - Vitals & Intake/Output Vital Signs: Vital Signs Temperature 98.5 F 04/08/23 07:45 Pulse Rate 99 H 04/08/23 07:45 Respiratory Rate 17 04/08/23 07:45 Blood Pressure 177/79 04/08/23 07:45 O2 Sat by Pulse Oximetry 97 04/08/23 07:45 Intake & Output: Intake & Output 04/05/23 04/06/23 04/07/23 04/08/23 11:59 11:59 11:59 11:59 Intake Total 240 Balance 240 Weight 95.6 kg - Lab Result Diagrams: 04/08/23 00:50 04/08/23 00:50 Lab Results-Last 24 Hrs: Lab Results-Last 24 Hours 04/08/23 04/08/23 04/08/23 Range/Units 00:50 00:50 00:50 WBC 4.8 (4.0-10.5) x10^3/uL RBC 3.79 L (4.1-5.6) x10^6/uL Hgb 12.0 L (12.5-18.0) g/dL Hct 35.8 L (42-50) % MCV 94.5 (78-100) fL MCH 31.7 (26-32) pg MCHC 33.5 (32-36) g/dL RDW 12.8 (11.5-14.0) % Plt Count 303 (150-450) x10^3/uL MPV 9.2 (7.5-11.0) fL Segmented Neutrophils 62 (36.-66.) % Lymphocytes (Manual) 28 (24-44) % Monocytes (Manual) 8 (0.0-12.0) % Atypical Lymphocytes 2 % Platelet Estimate NORMAL (NORMAL) RBC Morphology NORMAL PT 33.8 H (9.4-12.5) SECONDS INR 3.39 H (0.8-3.0) APTT 47.0 H (25.1-36.5) SECONDS D-Dimer 2.79 H* (0.0-0.50) mg/L Sodium 134 L (137-145) mmol/L Potassium 3.8 (3.5-5.1) mmol/L Chloride 103 (98-107) mmol/L Carbon Dioxide 24 (22-30) mmol/L Anion Gap 10.8 (5-15) MEQ/L BUN 11 (9-20) mg/dL Creatinine 0.79 (0.66-1.25) mg/dL Estimated GFR > 60.0 ML/MIN Glucose 128 H (74-106) mg/dL Calcium 8.6 (8.4-10.2) mg/dL Total Bilirubin 0.40 (0.2-1.3) mg/dL AST 36 (17-59) U/L ALT 30 (0-50) U/L Alkaline Phosphatase 83 (38-126) U/L Troponin I (0.000-0.034) ng/mL Serum Total Protein 6.6 (6.3-8.2) g/dL Albumin 3.8 (3.5-5.0) g/dL 04/08/23 04/08/23 04/08/23 Range/Units 00:50 05:07 09:01 WBC (4.0-10.5) x10^3/uL RBC (4.1-5.6) x10^6/uL Hgb (12.5-18.0) g/dL Hct (42-50) % MCV (78-100) fL MCH (26-32) pg MCHC (32-36) g/dL RDW (11.5-14.0) % Plt Count (150-450) x10^3/uL MPV (7.5-11.0) fL Segmented Neutrophils (36.-66.) % Lymphocytes (Manual) (24-44) % Monocytes (Manual) (0.0-12.0) % Atypical Lymphocytes % Platelet Estimate (NORMAL) RBC Morphology PT (9.4-12.5) SECONDS INR (0.8-3.0) APTT (25.1-36.5) SECONDS D-Dimer (0.0-0.50) mg/L Sodium (137-145) mmol/L Potassium (3.5-5.1) mmol/L Chloride (98-107) mmol/L Carbon Dioxide (22-30) mmol/L Anion Gap (5-15) MEQ/L BUN (9-20) mg/dL Creatinine (0.66-1.25) mg/dL Estimated GFR ML/MIN Glucose (74-106) mg/dL Calcium (8.4-10.2) mg/dL Total Bilirubin (0.2-1.3) mg/dL AST (17-59) U/L ALT (0-50) U/L Alkaline Phosphatase (38-126) U/L Troponin I < 0.012 < 0.012 < 0.012 (0.000-0.034) ng/mL Serum Total Protein (6.3-8.2) g/dL Albumin (3.5-5.0) g/dL - Radiology Exams Ordered Rad Exams-Entire Visit: Radiology Procedures Category Date Time Status CHEST 2 VIEWS (PA AND LAT) Stat Exams 04/08/23 00:41 Completed CHEST WITH CONTRAST [CT] Stat Exams 04/08/23 01:25 Completed - Procedures and Test Procedures and Tests throughout Hospitalization: Therapy Orders & Screens 04/08/23 04:03 EKG REPEAT IN AM Comment: Oxygen Nasal Cannula 2 lpm Comment: 04/08/23 06:14 OT Screen per Nursing Assess ONCE Comment: Protocol Order Physician Instructions: Greater than 3 points order OT Admission Screening Reason For Exam: Triggered on Admission Diagnosis: Chest tightness; cellulitis of left knee Open Wound/Cellutlitis/Pressure Ulcers: Yes: [email or web address]-recent replacemen Acute Fx/ORIF/Change in wt bearing status: No Severe MUSCULOSKELETAL pain: No ADL Dysfunction: No Acute CVA w/Hemiparesis/Hemiplegia: No Decreased Functional Mobility/Strength: No Sprain/Strain: No Acute Post-op Mobility Dysfunction: No Total Points: 5 PT Screen per Nursing Assess ONCE Comment: Protocol Order Physician Instructions: Greater than 3 points order PT Admission Screenin Reason For Exam: Triggered on Admission Diagnosis: Chest tightness; cellulitis of left knee Open Wound/Cellutlitis/Pressure Ulcers: Yes: ltknee-recent replacemen Acute Fx/ORIF/Change in wt bearing status: No Severe MUSCULOSKELETAL pain: No ADL Dysfunction: No Acute CVA w/Hemiparesis/Hemiplegia: No Decreased Functional Mobility/Strength: No Sprain/Strain: No Acute Post-op Mobility Dysfunction: No Total Points: 5 Discharge Exam General Appearance: no apparent distress, alert, anxiety (intermittent) Neurologic Exam: alert, oriented x 3, cooperative, normal mood/affect, nml cerebellar function, sensation nml, No motor deficits Eye Exam: PERRL, EOMI, eyes nml inspection Ears, Nose, Throat Exam: normal ENT inspection, pharynx normal, moist mucous membranes Neck Exam: normal inspection, non-tender, supple, full range of motion Respiratory Exam: normal breath sounds, lungs clear, No respiratory distress Cardiovascular Exam: regular rate/rhythm, normal heart sounds Gastrointestinal/Abdomen Exam: soft, No tenderness, No mass Male Genitalia Exam: deferred Rectal Exam: deferred Back Exam: normal inspection, normal range of motion, No CVA tenderness, No vertebral tenderness Extremity Exam: normal inspection, normal range of motion, limited range of motion (recent left knee surgery, + swollen, or redness or drainage) Skin Exam: normal color, warm, dry Final Diagnosis/Problem List - Final Discharge Diagnosis/Problem (1) Hx of left knee surgery Current Visit: Yes Status: Acute Code(s): Z98.890 - OTHER SPECIFIED POSTPROCEDURAL STATES (2) Chest tightness Current Visit: Yes Status: Acute Code(s): R07.89 - OTHER CHEST PAIN (3) Chronic a-fib Current Visit: Yes Status: Acute Code(s): I48.20 - CHRONIC ATRIAL FIBRILLATION, UNSPECIFIED (4) Essential (primary) hypertension Current Visit: Yes Status: Acute Code(s): I10 - ESSENTIAL (PRIMARY) HYPERTENSION (5) Hyponatremia Current Visit: Yes Status: Acute Assessment & Plan: (1) Chest tightness Current Visit: Yes Status: Acute Assessment & Plan: EKG and 1st trop negative. Will trend it out. No active chest pain now. PRN SL nitro Code(s): R07.89 - OTHER CHEST PAIN (2) Hx of left knee surgery Current Visit: Yes Status: Acute Assessment & Plan: - Clindamycin started and pt feels it has been helpful since admission - will continue OP for edema. - F/U with Ortho Monday as scheduled Code: Z98.890 (3) Hyponatremia Current Visit: Yes Status: Acute Assessment & Plan: Na 134, mildly low. Started NS at 100ml/hr Code(s): E87.1 - HYPO-OSMOLALITY AND HYPONATREMIA (4) Chronic a-fib Current Visit: Yes Status: Acute Assessment & Plan: On warfarin, INR 3.39. Will hold and monitor INR. Goal INR closer to 2-3. Can resume warfarin once INR is a little lower. HR controlled. On Diltiazem Code(s): I48.20 - CHRONIC ATRIAL FIBRILLATION, UNSPECIFIED (5) Essential (primary) hypertension Current Visit: Yes Status: Acute Assessment & Plan: We will monitor BP trend here. Resuming home BP meds 04/08 - stable Code(s): I10 - ESSENTIAL (PRIMARY) HYPERTENSION Code(s): E87.1 - HYPO-OSMOLALITY AND HYPONATREMIA (6) Anxiety Current Visit: Yes Status: Acute Assessment & Plan: - new since left knee surgery per pt. - will send home with hydroxyzine Code(s): F41.9 - ANXIETY DISORDER, UNSPECIFIED - Discharge Discharge Date: 04/08/23 Disposition: Home, Self-Care Condition: Stable Prescriptions: Continue Warfarin Sodium 5 mg [Jantoven] 0 mg PO UD lisinopriL [Lisinopril] 20 mg PO DAILY dilTIAZem HCL [Diltiazem 24Hr ER] 240 mg PO DAILY Acetaminophen 325 mg [Tylenol 325 mg] 650 mg PO Q6H PRN PRN PRN Reason: Pain Additional Instructions: Hold Coumadin today. Then restart tomorrow. Follow up with [facility] clinic. Follow up with ortho as scheduled tomorrow. Follow up with: [facility] [Primary Care Provider] -
[2023-04-08 11:42] VITALS: BP 166/75; PULSE 90; RESP 18; TEMP 97.8; O2SAT 96
== END 2023-04-08 13:15 | disposition home or self-care (01) ==
LOC: ED 00:17 → MED SURG 04:11
PROVIDERS: ADMIT Internal Medicine; ATTEND Internal Medicine
DX: R07.89 Other chest pain (principal); L03.116 Cellulitis of left lower limb; E87.1 Hypo-osmolality and hyponatremia; I48.20 Chronic atrial fibrillation, unspecified; I10 Essential (primary) hypertension; F41.9 Anxiety disorder, unspecified; Z79.01 Long term (current) use of anticoagulants; Z79.899 Other long term (current) drug therapy; Z20.828 Contact with and (suspected) exposure to other viral communicable diseases; Z98.890 Other specified postprocedural states
CPT/HCPCS: 36000; 36415; 71046; 71260; 80053; 84484; 85025; 85379; 85610; 85730; 87040; 93005; 93041; 93268; 94760; 96365; 99285; G0378; A9270-GY

== ENCOUNTER 2024-04-22 15:26 | Emergency (ER) | payer MEDICARE, SELFPAY ==
[2024-04-22 15:55] LABS: Appearance Clear (Clear); Bacteria None Seen /HPF (None Seen); Bilirubin Negative (Negative); Blood Moderate (Negative); Epithelial Cells None Seen /HPF (None Seen); Glucose, Urine Negative (Negative); Hyaline Casts NONE SEEN /LPF (0-2); Ketones Negative (Negative); Leukocyte Esterase Negative (Negative); Nitrite Negative (Negative); Protein,Urine Dip Trace (Negative); RBC 51-100 /HPF (0-5); Urobilinogen 0.2 mg/dL (0.2)
[2024-04-22 16:03] VITALS: TEMP 98.6
--- NOTE | 2024-04-22 16:21 | ERPHSYRPT ---
- History of Present Illness Time Seen by Provider: 04/22/24 16:21 Source: patient, family Patient Subjective Stated Complaint: buring with urination, low back pain, little voiding, nausea and little appetite Triage Nursing Assessment: pt to ED c/o decrease in voiding and burning with urination. was able to void in waiting room and sample sent to lab. c/o lower abd pain and bilateral flank pain. had watchman placed at [facility] on Monday and was complaing of burning with urination on DC; per pt they did not check urine sample at that time. abd soft and non tender. bowel sounds active in all quads. Physician History: 83 years old male presenting to the emergency room accompanied by his with a chief complaint of frequency of micturition some urinary incontinence lower back pain and suprapubic pain that he has been having for the last couple of days. The patient states that last Monday he had a Watchman procedure done at [facility] in [place]. He is having the chills but no fever. He is denying any nausea or vomiting. He has a history of prostatitis in the past and presented with similar symptoms treated with oral antibiotics for 10 days and felt better. Allergies/Adverse Reactions: No Known Drug Allergies Allergy (Verified 04/22/24 15:46) Home Medications: lisinopriL [Lisinopril] 20 mg PO DAILY 03/02/22 [History] Acetaminophen 325 mg [Tylenol 325 mg] 650 mg PO Q6H PRN PRN 04/08/23 [History] Clopidogrel Bisulfate [Clopidogrel] 75 mg PO DAILY 10/24/23 [History] Metoprolol Succinate 25 mg Xl* [Toprol-Xl 25MG Tablets] 12.5 mg PO DAILY 10/24/23 [History] hydrOXYzine pamoate [Hydroxyzine Pamoate] 50 mg PO BID PRN PRN 10/24/23 [History] Spironolactone 25 mg [Aldactone 25 MG] 25 mg PO DAILY 11/28/23 [History] Tramadol HCl 50 mg [Ultram 50 mg] 50 mg PO TID PRN PRN 11/28/23 [History] Ferrous Sulfate 325 mg [Feosol 325 mg] 325 mg PO DAILY 03/26/24 [History] PANTOPRAZOLE 40 mg Tablet [Protonix 40MG Tablet] 40 mg PO QAM 04/22/24 [History] Hx Tetanus, Diphtheria Vaccination/Date Given: No Hx Influenza Vaccination/Date Given: No Hx Pneumococcal Vaccination/Date Given: No Travel Risk - International Travel Have you traveled outside of the country in past 3 weeks: No - Emerging Infectious Disease Are you exhibiting symptoms associated with any current EIDs: Yes Symptoms: Abdominal Pain - Review of Systems Constitutional: No Symptoms Genitourinary Symptoms: Frequency, Hesitancy, Urinary Retention Immunological/Allergic: No Symptoms - Past Medical History Pertinent Past Medical History: Yes Neurological History: No Pertinent History ENT History: No Pertinent History Cardiac History: Arrhythmia, Hypertension Respiratory History: No Pertinent History Endocrine Medical History: No Pertinent History Musculoskeletal History: Arthritis GI Medical History: GI Bleed History: No Pertinent History Psycho-Social History: No Pertinent History Male Reproductive Disorders: No Pertinent History Other Medical History: A-FIB - Past Surgical History Past Surgical History: Yes Neuro Surgical History: No Pertinent History Cardiac: Cardiac Stent, Other Respiratory: No Pertinent History Gastrointestinal: No Pertinent History Genitourinary: No Pertinent History Musculoskeletal: Orthopedic Surgery Male Surgical History: No Pertinent History Other Surgical History: 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 jul 2023 3 stents. watchman placed 03/2024 Significant Family History: no pertinent family hx - Social History Smoking Status: Former smoker Exposure to second hand smoke: No Drug Use: none Patient Lives Alone: Yes - Social Determinants of Health Will the patient participate in the screening: Yes Do you worry about a steady place to live?: No Do you have any problems with any of the following?: No known problems In the past 12 months,have you had to go without utilities?: No Transportation Issues: No Has anyone in your support network made you feel unsafe?: No Have you or anyone in your house had to go without enough: No - Nursing Vital Signs Nursing Vital Signs: Initial Vital Signs Temperature 98.6 F 04/22/24 15:48 Pulse Rate 89 04/22/24 15:48 Respiratory Rate 18 04/22/24 15:48 Blood Pressure 156/85 04/22/24 15:48 O2 Sat by Pulse Oximetry 96 04/22/24 15:48 Pain Scale Pain Intensity 9 - Physical Exam General Appearance: no apparent distress Eye Exam: PERRL/EOMI, eyes nml inspection Ears, Nose, Throat Exam: normal ENT inspection, TMs normal, pharynx normal Neck Exam: normal inspection, non-tender, supple, full range of motion Respiratory Exam: normal breath sounds, lungs clear Cardiovascular Exam: regular rate/rhythm, normal heart sounds, normal peripheral pulses Gastrointestinal/Abdomen Exam: soft, normal bowel sounds, tenderness (Suprapubic tenderness), distention Rectal Exam: deferred Back Exam: normal inspection, normal range of motion Extremity Exam: normal inspection, normal range of motion, pelvis stable Neurologic Exam: alert, oriented x 3, cooperative, mental health program director II-XII nml as tested, normal mood/affect Skin Exam: normal color, warm SpO2 Interpretation: normal SpO2: 96 O2 Delivery: Room Air - Course Nursing assessment & vital signs reviewed: Yes Ordered Tests: Active Orders 24 hr Category Date Time Status IV Insertion STAT Care 04/22/24 16:55 Active cath [Cath for Residual-In & Out (Straight)] STAT Care 04/22/24 19:17 Active ABDOMEN AND PELVIS W/0 CONTRAS [CT] Stat Exams 04/22/24 16:48 Taken CBC W DIFF Stat Lab 04/22/24 17:10 Completed CMP Stat Lab 04/22/24 17:10 Completed CULTURE,URINE Stat Lab 04/22/24 15:43 Received LIPASE Stat Lab 04/22/24 17:10 Completed PT INR [PROTIME WITH INR] Stat Lab 04/22/24 Completed UA W/RFX UR CULTURE Stat Lab 04/22/24 15:43 Completed Medication Summary Discontinued Medications Generic Name Dose Route Start Last Admin Trade Name Vincent PRN Reason Stop Dose Admin Morphine Sulfate 2 mg 04/22/24 17:55 04/22/24 18:01 Morphine Sulfate 2 Mg/Ml Inj IV 04/22/24 17:56 2 mg STAT ONE Administration Morphine Sulfate Confirm 04/22/24 18:01 Morphine Sulfate 2 Mg/Ml Inj Administered 04/22/24 18:02 Dose 2 mg .ROUTE .STK-MED ONE Morphine Sulfate Confirm 04/22/24 18:56 Morphine Sulfate 2 Mg/Ml Inj Administered 04/22/24 18:57 Dose 2 mg .ROUTE .STK-MED ONE Morphine Sulfate 2 mg 04/22/24 19:12 04/22/24 19:14 Morphine Sulfate 2 Mg/Ml Inj IV 04/22/24 19:13 2 mg STAT ONE Administration Ondansetron HCl 4 mg 04/22/24 18:00 04/22/24 18:01 Ondansetron Hcl 4 Mg/2 Ml Vial IV 04/22/24 18:01 4 mg STAT ONE Administration Ondansetron HCl Confirm 04/22/24 18:01 Ondansetron Hcl 4 Mg/2 Ml Vial Administered 04/22/24 18:02 Dose 4 mg .ROUTE .STK-MED ONE Lab/Rad Data: Laboratory Result Diagrams 04/22/24 17:10 04/22/24 17:10 Laboratory Results 04/22/24 04/22/24 04/22/24 Range/Units Unknown 17:10 17:10 WBC 14.1 H (4.23-9.07) x10^3/uL RBC 4.31 L (4.63-6.08) x10^6/uL Hgb 13.1 L (13.7-17.5) g/dL Hct 39.6 L (40.1-51.0) % MCV 91.9 (79.0-92.2) fL MCH 30.4 (25.7-32.2) pg MCHC 33.1 (32.3-36.5) g/dL RDW 14.5 H (11.6-14.4) % Plt Count 218 (163-337) x10^3/uL MPV 10.2 (9.4-12.4) fL Gran % 82.9 H (34.0-67.9) % Immature Gran % (Auto) 0.6 H (0.001-0.429) % Nucleat RBC Rel Count 0.0 (0.00-0.2) % Eos # (Auto) 0.07 (0.04-0.54) x10^3/uL Immature Gran # (Auto) 0.08 H (0.001-0.031) x10^3u/L Absolute Lymphs (auto) 0.97 L (1.32-3.57) x10^3/uL Absolute Monos (auto) 1.26 H (0.30-0.82) x10^3/uL Absolute Nucleated RBC 0.00 (0.00-0.012) x10^3u/L Lymphocytes % 6.9 L (21.8-53.1) % Monocytes % 9.0 (5.3-12.2) % Eosinophils % 0.5 L (0.8-7.0) % Basophils % 0.1 L (0.2-1.2) % Absolute Granulocytes 11.65 H (1.78-5.38) x10^3/uL Basophils # 0.02 (0.01-0.08) x10^3/uL PT 21.9 H (9.4-12.5) SECONDS INR 2.11 (0.8-3.0) Sodium 133 L (135-145) mmol/L Potassium 3.7 (3.5-5.1) mmol/L Chloride 102 (98-107) mmol/L Carbon Dioxide 20 L (22-30) mmol/L Anion Gap 14.4 (5-15) MEQ/L BUN 33 H (9-20) mg/dL Creatinine 1.11 (0.66-1.25) mg/dL Estimated GFR 65.1 ML/MIN Glucose 147 H (74-106) mg/dL Calcium 8.9 (8.4-10.2) mg/dL Total Bilirubin 1.30 (0.2-1.3) mg/dL AST 38 (17-59) U/L ALT 17 (0-50) U/L Alkaline Phosphatase 57 (38-126) U/L Serum Total Protein 7.2 (6.3-8.2) g/dL Albumin 3.9 (3.5-5.0) g/dL Lipase 29 (23-300) U/L Urine Color (Yellow) Urine Appearance (Clear) Urine pH (4.6-8.0) Ur Specific Stanton (1.005-1.030) Urine Protein (Negative) Urine Glucose (UA) (Negative) mg/dL Urine Ketones (Negative) Urine Blood (Negative) Urine Nitrite (Negative) Urine Bilirubin (Negative) Urine Urobilinogen (0.2) mg/dL Ur Leukocyte Esterase (Negative) U Hyaline Cast (Auto) (0-2) /LPF Urine Microscopic RBC (0-5) /HPF Urine Microscopic WBC (0-5) /HPF Ur Epithelial Cells (None Seen) /HPF Urine Bacteria (None Seen) /HPF Urine Culture Reflexed (NO) 04/22/24 Range/Units 15:43 WBC (4.23-9.07) x10^3/uL RBC (4.63-6.08) x10^6/uL Hgb (13.7-17.5) g/dL Hct (40.1-51.0) % MCV (79.0-92.2) fL MCH (25.7-32.2) pg MCHC (32.3-36.5) g/dL RDW (11.6-14.4) % Plt Count (163-337) x10^3/uL MPV (9.4-12.4) fL Gran % (34.0-67.9) % Immature Gran % (Auto) (0.001-0.429) % Nucleat RBC Rel Count (0.00-0.2) % Eos # (Auto) (0.04-0.54) x10^3/uL Immature Gran # (Auto) (0.001-0.031) x10^3u/L Absolute Lymphs (auto) (1.32-3.57) x10^3/uL Absolute Monos (auto) (0.30-0.82) x10^3/uL Absolute Nucleated RBC (0.00-0.012) x10^3u/L Lymphocytes % (21.8-53.1) % Monocytes % (5.3-12.2) % Eosinophils % (0.8-7.0) % Basophils % (0.2-1.2) % Absolute Granulocytes (1.78-5.38) x10^3/uL Basophils # (0.01-0.08) x10^3/uL PT (9.4-12.5) SECONDS INR (0.8-3.0) Sodium (135-145) mmol/L Potassium (3.5-5.1) mmol/L Chloride (98-107) mmol/L Carbon Dioxide (22-30) mmol/L Anion Gap (5-15) MEQ/L BUN (9-20) mg/dL Creatinine (0.66-1.25) mg/dL Estimated GFR ML/MIN Glucose (74-106) mg/dL Calcium (8.4-10.2) mg/dL Total Bilirubin (0.2-1.3) mg/dL AST (17-59) U/L ALT (0-50) U/L Alkaline Phosphatase (38-126) U/L Serum Total Protein (6.3-8.2) g/dL Albumin (3.5-5.0) g/dL Lipase (23-300) U/L Urine Color Yellow (Yellow) Urine Appearance Clear (Clear) Urine pH 6.0 (4.6-8.0) Ur Specific Stanton 1.020 (1.005-1.030) Urine Protein Trace A (Negative) Urine Glucose (UA) Negative (Negative) mg/dL Urine Ketones Negative (Negative) Urine Blood Moderate A (Negative) Urine Nitrite Negative (Negative) Urine Bilirubin Negative (Negative) Urine Urobilinogen 0.2 (0.2) mg/dL Ur Leukocyte Esterase Negative (Negative) U Hyaline Cast (Auto) NONE SEEN (0-2) /LPF Urine Microscopic RBC 51-100 A (0-5) /HPF Urine Microscopic WBC 6-10 A (0-5) /HPF Ur Epithelial Cells None Seen (None Seen) /HPF Urine Bacteria None Seen (None Seen) /HPF Urine Culture Reflexed YES (NO) - Progress Progress Note: 04/22/24 16:24 83 years old male presenting to the emergency room accompanied by his with a chief complaint of frequency of micturition some urinary incontinence lower back pain and suprapubic pain that he has been having for the last couple of days. The patient states that last Monday he had a Watchman procedure done at [facility] in [place]. He is having the chills but no fever. He is denying any nausea or vomiting. He has a history of prostatitis in the past and present ed with similar symptoms treated with oral antibiotics for 10 days and felt better. Emergency room course Check urinalysis. 04/22/24 17:00 Patient's urinalysis demonstrated blood, 100 RBCs no white blood cells or bacteria. Will order CBC, CMP, CT scan of abdomen and pelvis without contrast rule out kidney stones. 04/22/24 18:44 White blood cell count elevated at 14,000, hemoglobin 13, hematocrit 39.6 platelets 218. Sodium 133, potassium 3.7, chloride 102, bicarb 20, BUN 33 creatinine 1.[address] scan of abdomen and pelvis demonstrated no renal stones. New markedly distended urinary bladder, rule out outlet obstruction versus neurogenic bladder. New mild bilateral hydronephrosis presumed secondary to distended bladder. Benign left adrenal mass, diverticulosis and left renal cyst. Will place a Nath catheter and evaluate from there. 04/22/24 19:32 The patient refused a Nath catheter, agreed on a straight cath which drained 1100 cc of clear urine. The patient felt much better stating that the pain pressure in his abdomen and back is much less. He will be discharged home accompanied by his . Follow-up with his family physician he needs to be referred to a urologist. Continue his present medications. - Departure Departure Disposition: Home Clinical Impression: Urinary retention, Hematuria Condition: Stable Critical Care Time: No [facility]: [facility]] - Follow up/PCP as directed Prescriptions: Tamsulosin HCl 0.4 mg [Flomax 0.4 MG] 0.4 mg PO DAILY #30 cap
[2024-04-22 17:17] LABS: Absolute Neutrophil Ct (ANC) 11.65 x10^3/uL (1.78-5.38); BASOPHIL % 0.1 % (0.2-1.2); Basophil (Absolute #) 0.02 x10^3/uL (0.01-0.08); Eosinophil % 0.5 % (0.8-7.0); Eosinophil (Absolute #) 0.07 x10^3/uL (0.04-0.54); Hematocrit 39.6 % (40.1-51.0); Hemoglobin 13.1 g/dL (13.7-17.5); IMMATURE GRAN # 0.08 x10^3u/L (0.001-0.031); IMMATURE GRAN % 0.6 % (0.001-0.429); Lymphocyte (Absolute #) 0.97 x10^3/uL (1.32-3.57); Lymphocytes % 6.9 % (21.8-53.1); Mean Cell Volume 91.9 fL (79.0-92.2); Mean Corpuscular Hemoglobin 30.4 pg (25.7-32.2); Mean Corpuscular Hgb Concent. 33.1 g/dL (32.3-36.5); Mean Platelet Volume 10.2 fL (9.4-12.4); Monocyte (Absolute #) 1.26 x10^3/uL (0.30-0.82); Neutrophil % 82.9 % (34.0-67.9); Platelet Count 218 x10^3/uL (163-337); Red Blood Count 4.31 x10^6/uL (4.63-6.08); Red Cell Distribution Width 14.5 % (11.6-14.4); White Blood Count 14.1 x10^3/uL (4.23-9.07)
[2024-04-22 17:35] LABS: ALBUMIN 3.9 g/dL (3.5-5.0); ANION GAP 14.4 MEQ/L (5-15); BILIRUBIN,TOTAL 1.3 mg/dL (0.2-1.3); Calcium 8.9 mg/dL (8.4-10.2); Creatinine 1 1.11 mg/dL (0.66-1.25); EST GLOMERULAR FILTRATION RATE 65.1 ML/MIN; Potassium 3.7 mmol/L (3.5-5.1); Total Protein 7.2 g/dL (6.3-8.2)
[2024-04-22] MEDS: Zofran 4 MG/2 ML VIAL IV ONE (18:01)
[2024-04-22] MEDS: MORPHINE SULFATE 2 MG INJ IV ONE ×2 (18:01→19:14)
[2024-04-22] MEDS ORDERED: MORPHINE SULFATE 2 MG INJ ONE ×2 (18:01→18:56)
[2024-04-22] MEDS ORDERED: Zofran 4 MG/2 ML VIAL ONE (18:01)
[2024-04-22 18:36] LABS: INR 2.11 (0.8-3.0); PROTIME 21.9 SECONDS (9.4-12.5)
[2024-04-22 18:46] VITALS: O2SAT 96
[2024-04-22 19:53] VITALS: BP 171/87; PULSE 68; RESP 16
--- NOTE | 2024-04-23 08:44 | XRAY ---
Indication: Bilateral flank pain. Kidney stone. Multiple contiguous axial images obtained through the abdomen and pelvis without contrast. Comparison: May 08, 2023 Lung bases again demonstrates 1 cm posterior left lower lobe subpleural noncalcified nodule, previously 1.5 cm. Right middle lobe demonstrates 7 mm noncalcified nodule, previously 1.1 cm. both nodules favored to be benign given smaller size. Again minimal right lower lobe subsegmental atelectasis/scarring. No infiltrate or effusion. Heart not enlarged. Stable small hiatal hernia. Noncontrasted stomach and bowel loops appear nonobstructed with normal appendix. Scattered descending and sigmoid diverticulosis. Stable probable benign left adrenal gland mass. Urinary bladder is now markedly distended concerning for neurogenic bladder versus outlet obstruction. Latter is more likely given the enlarged prostate gland. Both kidneys are now mildly edematous and hydronephrotic presumed secondary to distended urinary bladder. Grossly stable left renal cyst. No free fluid/air. Remaining liver, gallbladder, pancreas, spleen, and right adrenal gland unremarkable for noncontrast exam. Again moderate scattered aortoiliac calcification is without AAA. Osseous structures intact again with osteopenia, mild/moderate degenerative changes throughout spine, and mild levoscoliosis. Impression: 1. Markedly distended urinary bladder. Rule out neurogenic bladder versus outlet obstruction. Enlarged prostate gland would favor bladder outlet obstruction. Both kidneys mildly edematous and hydronephrotic presumed secondary to abnormal distended bladder. 2. Again chronic findings including benign noncalcified lung nodules, hiatal hernia, colonic diverticulosis, left renal cyst, probable benign left adrenal gland mass, arteriosclerotic disease, and chronic bony findings.
== END 2024-04-22 20:00 | disposition home or self-care (01) ==
LOC: ED 15:26
DX: R33.9 Retention of urine, unspecified (principal); R31.9 Hematuria, unspecified; R35.0 Frequency of micturition; M54.50 Low back pain, unspecified; R10.2 Pelvic and perineal pain; I10 Essential (primary) hypertension; Z79.02 Long term (current) use of antithrombotics/antiplatelets; Z79.899 Other long term (current) drug therapy
CPT/HCPCS: 36000; 36415; 51701; 74176; 80053; 81001; 83690; 85025; 85610; 87086; 96374; 96375; 96376; 99284; J2270; J2405

== ENCOUNTER 2024-04-23 12:39 | Emergency (ER) | payer MEDICARE, SELFPAY ==
[2024-04-23 13:09] VITALS: TEMP 98.1
[2024-04-23 13:15] VITALS: O2SAT 96
[2024-04-23 13:49] LABS: Appearance Cloudy (Clear); Bacteria None Seen /HPF (None Seen); Bilirubin Negative (Negative); Blood Large (Negative); Epithelial Cells Rare /HPF (None Seen); Glucose, Urine Negative (Negative); Hyaline Casts NONE SEEN /LPF (0-2); Ketones Negative (Negative); Leukocyte Esterase Small (Negative); Nitrite Negative (Negative); Protein,Urine Dip 300 (Negative); RBC >100 /HPF (0-5); Specific Gravity 1.015 (1.005-1.030); Urobilinogen 0.2 mg/dL (0.2)
--- NOTE | 2024-04-23 13:54 | ERPHSYRPT ---
- History of Present Illness Time Seen by Provider: 04/23/24 13:49 Source: patient Exam Limitations: no limitations Patient Subjective Stated Complaint: C/O urinary retention. Indicates he was at the ER yesterday for the same thing. 1000cc of urine collected through F/C ar ound 7:30pm in ER per patient reports and indicates he has not voided since then. Triage Nursing Assessment: Patient is alert and oriented. Abdomen firm. Dressing in placed near right groin; indicates from a procedure the other day. No SOB. F/C anchored; draining tea colored urine initially then turned to red colored urine in cath tubing after approx the first 500cc drainaged. Physician History: 83-year-old male presents to our ED for evaluation of urinary retention. Patient was in our ED yesterday for the same. CT scan was completed. No si gnificant findings observed. Urinalysis yesterday was negative for UTI. Patient refused indwelling Nath catheter. Patient was discharged home and is now here with urinary retention for the second time in 2 days. Nath catheter placed by nursing staff. Urine output was bloody. Patient experienced immediate relief. Patient has no other complaints however at this time he is willing to keep the Nath catheter in place. Patient otherwise feels fine. He voices no other complaints or concerns at this time. 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 Patient states that he never had issues of urinary retention until after his procedure. They contacted the patient's sql bi developer. Channel Development Director reports that the urinary retention is not related to the procedure that patient should follow-up with a urologist Nath catheter placed approximately 500 cc of bloody urine expressed Portions of this note were created with voice recognition technology. There may be grammatical, spelling, punctuation or sound alike errors Timing/Duration: yesterday Severity: moderate Modifying Factors: Improves With: nothing Associated Symptoms: denies symptoms Allergies/Adverse Reactions: No Known Drug Allergies Allergy (Verified 04/23/24 12:49) Home Medications: lisinopriL [Lisinopril] 20 mg PO DAILY 03/02/22 [History] Acetaminophen 325 mg [Tylenol 325 mg] 650 mg PO Q6H PRN PRN 04/08/23 [Hist ory] Clopidogrel Bisulfate [Clopidogrel] 75 mg PO DAILY 10/24/23 [History] Metoprolol Succinate 25 mg Xl* [Toprol-Xl 25MG Tablets] 12.5 mg PO DAILY 10/24/23 [History] hydrOXYzine pamoate [Hydroxyzine Pamoate] 50 mg PO BID PRN PRN 10/24/23 [History] Spironolactone 25 mg [Aldactone 25 MG] 25 mg PO DAILY 11/28/23 [History] Tramadol HCl 50 mg [Ultram 50 mg] 50 mg PO TID PRN PRN 11/28/23 [History] Ferrous Sulfate 325 mg [Feosol 325 mg] 325 mg PO DAILY 03/26/24 [History] PANTOPRAZOLE 40 mg Tablet [Protonix 40MG Tablet] 40 mg PO QAM 04/22/24 [History] Hx Tetanus, Diphtheria Vaccination/Date Given: No Hx Influenza Vaccination/Date Given: No Hx Pneumococcal Vaccination/Date Given: No Immunizations Up to Date: Yes Travel Risk - International Travel Have you traveled outside of the country in past 3 weeks: No - Emerging Infectious Disease Are you exhibiting symptoms associated with any current EIDs: Yes Symptoms: Abdominal Pain - Review of Systems Constitutional: No Symptoms, No Fever, No Chills Eyes: No Symptoms Ears, Nose, & Throat: No Symptoms Respiratory: No Symptoms, No Cough, No Dyspnea Cardiac: No Symptoms, No Chest Pain, No Edema, No Syncope Abdominal/Gastrointestinal: No Symptoms, No Abdominal Pain, No Nausea, No Vomiting, No Diarrhea Genitourinary Symptoms: No Symptoms, No Dysuria Musculoskeletal: No Symptoms, No Back Pain, No Neck Pain Skin: No Symptoms, No Rash Neurological: No Symptoms, No Dizziness, No Focal Weakness, No Sensory Changes Psychological: No Symptoms Endocrine: No Symptoms Hematologic/Lymphatic: No Symptoms Immunological/Allergic: No Symptoms All Other Systems: Reviewed and Negative - Past Medical History Pertinent Past Medical History: Yes Neurological History: No Pertinent History ENT History: No Pertinent History Cardiac History: Arrhythmia, Hypertension Respiratory History: No Pertinent History Endocrine Medical History: No Pertinent History Musculoskeletal History: Arthritis GI Medical History: GI Bleed History: No Pertinent History Psycho-Social History: No Pertinent History Male Reproductive Disorders: No Pertinent History Other Medical History: A-FIB - Past Surgical History Past Surgical History: Yes Neuro Surgical History: No Pertinent History Cardiac: Cardiac Catheterization, Cardiac Stent, Other Respiratory: No Pertinent History Gastrointestinal: No Pertinent History Genitourinary: No Pertinent History Musculoskeletal: Orthopedic Surgery Male Surgical History: No Pertinent History Other Surgical History: 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 jul 2023 3 stents. watchman placed 03/2024 Significant Family History: no pertinent family hx - Social History Smoking Status: Former smoker Exposure to second hand smoke: No Drug Use: none Patient Lives Alone: Yes - Social Determinants of Health Will the patient participate in the screening: Yes Do you worry about a steady place to live?: No Do you have any problems with any of the following?: No known problems In the past 12 months,have you had to go without utilities?: No Transportation Issues: No Has anyone in your support network made you feel unsafe?: No Have you or anyone in your house had to go without enough: No - Nursing Vital Signs Nursing Vital Signs: Initial Vital Signs Temperature 98.1 F 04/23/24 12:40 Pulse Rate 69 04/23/24 12:40 Respiratory Rate 18 04/23/24 12:40 O2 Sat by Pulse Oximetry 95 04/23/24 12:40 Pain Scale Pain Intensity 4 - Physical Exam General Appearance: no apparent distress, alert Eye Exam: PERRL/EOMI, eyes nml inspection Ears, Nose, Throat Exam: normal ENT inspection, moist mucous membranes Neck Exam: normal inspection, full range of motion Respiratory Exam: normal breath sounds, lungs clear, airway intact, No respiratory distress Cardiovascular Exam: regular rate/rhythm, normal heart sounds Gastrointestinal/Abdomen Exam: soft, normal bowel sounds, No tenderness, No mass Back Exam: normal inspection, normal range of motion, No CVA tenderness, No vertebral tenderness Extremity Exam: normal inspection, normal range of motion, pelvis stable Neurologic Exam: alert, oriented x 3, cooperative, normal mood/affect, sensation nml, No motor deficits Skin Exam: normal color, warm, dry, No rash Lymphatic Exam: No adenopathy SpO2 Interpretation: normal SpO2: 96 O2 Delivery: Room Air - Course Nursing assessment & vital signs reviewed: Yes Ordered Tests: Active Orders 24 hr Category Date Time Status Cath [Catheter-[place] Nath] STAT Care 04/23/24 13:04 Active CULTURE,URINE Stat Lab 04/23/24 13:04 Received CULTURE,URINE Stat Lab 04/23/24 13:04 Received UA W/RFX UR CULTURE Stat Lab 04/23/24 13:04 Completed Medication Summary Discontinued Medications Generic Name Dose Route Start Last Admin Trade Name Vincent PRN Reason Stop Dose Admin Ciprofloxacin 500 mg 04/23/24 14:02 Ciprofloxacin 500 Mg Tablet PO 04/23/24 14:03 ONCE STA Lab/Rad Data: Laboratory Results 04/23/24 Range/Units 13:04 Urine Color [place] A (Yellow) Urine Appearance Cloudy A (Clear) Urine pH 6.0 (4.6-8.0) Ur Specific [place] 1.015 (1.005-1.030) Urine Protein 300 A (Negative) Urine Glucose (UA) Negative (Negative) mg/dL Urine Ketones Negative (Negative) Urine Blood Large A (Negative) Urine Nitrite Negative (Negative) Urine Bilirubin Negative (Negative) Urine Urobilinogen 0.2 (0.2) mg/dL Ur Leukocyte Esterase Small A (Negative) U Hyaline Cast (Auto) NONE SEEN (0-2) /LPF Urine Microscopic RBC >100 A (0-5) /HPF Urine Microscopic WBC 11-20 A (0-5) /HPF Ur Epithelial Cells Rare (None Seen) /HPF Urine Bacteria None Seen (None Seen) /HPF Urine Culture Reflexed YES (NO) - Progress Progress: improved Progress Note: 83-year-old male presents to our ED for urinary retention. Patient was in our ED for the same yesterday. Patient refused a Nath catheter in the left. Patient is here for urinary retention for the second time. CT scan performed yesterday revealed obstructive uropathy secondary to prostate hypertrophy causing hydronephrosis. Today's urinalysis reveals urinary tract infection. Nath catheter placed. Approximately 500 cc of bloody urine expressed. Patient is pain-free at this time. Patient agrees to keep the Nath catheter intact today. In light of the urinary tract infection observed today patient received a dose of ciprofloxacin. Staff currently arranging for early urology outpatient follow-up. No indication for further workup at this time. Will discharge home. Patient agrees to follow-up with his urologist as -year-old. Portions of this note were created with voice recognition technology. There may be grammatical, spelling, punctuation or sound alike errors Complexity problem addressed is moderate acute complicated. No critical care time. Complex of data reviewed and analyzed is moderate. Test ordered test reviewed results analyzed and correlated clinically with history and physical exam. Risk of complication and or risk of morbidity/mortality patient management is moderate. Vital stable. Time spent to discharge patient approximately 20 minutes. Plan of care established for shared decision making. No social determinants of health present to impede follow-up. Portions of this note were created with voice recognition technology. There may be grammatical, spelling, punctuation or sound alike errors 04/23/24 14:05 Counseled pt/family regarding: lab results, diagnosis, need for follow-up - Departure Departure Disposition: Home Clinical Impression: Urinary retention, Enlarged prostate, Hematuria Condition: Stable Critical Care Time: No Referrals: MARCELA BINGHAM MD [Primary Care Provider] - Follow up/PCP as directed Additional Instructions: Discharge/Care Plan MARLIN CABRAL was seen on 04/23/24 in the Emergency Room. The patient was counseled regarding Diagnosis,Lab results, Imaging studies, need for follow up and when to return to the Emergency Room. Prescriptions given: Discharge Note I have spoken with the patient and/or caregivers. I have explained the patient's condition, diagnosis and treatment plan based on the information available to me at this time. I have answered the patient's and/or caregiver's questions and addressed any concerns. The patient and/or caregivers have as good understanding of the patient's diagnosis, condition and treatment plan as can be expected at this point. The vital signs have been stable. The patient's condition is stable and appropriate for discharge from the emergency department. The patient will pursue further outpatient evaluation with the primary care physician or other designated or consulting physician as outlined in the discharge instructions. The patient and/or caregivers are agreeable to this plan of care and follow-up instructions have been explained in detail. The patient and/or caregivers have received these instruction. The patient/and or caregivers are aware that any significant change in condition or worsening of symptoms should prompt an immediate return to this or the closest emergency department or call 911. Prescriptions: Ciprofloxacin [Cipro 500 MG] 500 mg PO BID #14 tablet
[2024-04-23 14:05] VITALS: PULSE 70; RESP 14
[2024-04-23] MEDS ORDERED: Cipro 500 MG ONE (14:11)
[2024-04-23] MEDS: Cipro 500 MG PO STA (14:11)
[2024-04-23 14:46] VITALS: BP 187/94
== END 2024-04-23 14:40 | disposition home or self-care (01) ==
LOC: ED 12:39
DX: R33.9 Retention of urine, unspecified (principal); N40.0 Benign prostatic hyperplasia without lower urinary tract symptoms; R31.9 Hematuria, unspecified; I10 Essential (primary) hypertension; Z79.02 Long term (current) use of antithrombotics/antiplatelets; Z79.899 Other long term (current) drug therapy
CPT/HCPCS: 51702; 81001; 87086; 99283; A9270-GY

== ENCOUNTER 2024-04-27 06:33 | Emergency (ER) | payer MEDICARE, SELFPAY ==
[2024-04-27] MEDS ORDERED: XYLOCAINE 2% Uro-Jet ONE ×2 (06:37→06:51)
[2024-04-27] MEDS: XYLOCAINE 2% Uro-Jet TOP ONE ×2 (06:48→07:34)
[2024-04-27 07:26] VITALS: TEMP 98
[2024-04-27] MEDS ORDERED: MORPHINE SULFATE 2 MG INJ ONE (07:27)
[2024-04-27] MEDS: MORPHINE SULFATE 2 MG INJ IM ONE (07:30)
--- NOTE | 2024-04-27 07:42 | ERPHSYRPT ---
- History of Present Illness Time Seen by Provider: 04/27/24 07:41 Source: patient Exam Limitations: no limitations Patient Subjective Stated Complaint: pt states that he had his stone cath taken out in Dr. Bingham's office yesterday morning. pt states since having the cath removed yesterday he has only dribbled twice. pt states since watchman was placed he has not been able to urinate. watchman was placed on 04/19/24 Triage Nursing Assessment: pt ambulated into the er with assist of cane; pt is axo x4; c/o urinary retention; pt states 05/02 pain to pelvis and back; abd round, soft, tender; active bowel sounds in all quads; last bm 04/26/24; denies N/V; skin PDW; no respiratory distress present; Physician History: The patient, with a history of an enlarged prostate, presents with worsening lower abdominal pain and urinary retention. The symptoms began last Monday following a Watchman procedure. Post-procedure, the patient experienced burning sensations during urination, which were reported but not investigated. The patient was unable to urinate upon returning home on Monday. A urinary catheter was inserted to manage the issue, but it was removed on Monday, leading to bloody urine. The catheter was reinserted on Monday due to continued urinary retention, but it was removed again on Monday, despite the presence of blood in the urine bag. The patient has not been able to urinate for almost 24 hours, leading to increased abdominal pain. The patient has been on antibiotics for three days, but the urinary symptoms persist. The patient's enlarged prostate and recent catheter insertions have caused swelling, complicating further catheter insertions. The patient is concerned about potential damage to the bladder and kidneys. Timing/Duration: yesterday, worse Activites at Onset: none Quality: burning, sharpness, stabbing Onset Location: suprapubic, urethral Pain Radiation: none Severity of Pain-Max: severe Severity of Pain-Current: severe Modifying Factors: Improves With: nothing. Worsens With: movement, palpation Associated Symptoms: abdominal pain, dysuria, No fever, No chills, No diaphoresis, No nausea, No vomiting Prior abdominal problems: none Sexual intercourse history: non-contributory Allergies/Adverse Reactions: No Known Drug Allergies Allergy (Verified 04/27/24 06:39) Home Medications: lisinopriL [Lisinopril] 20 mg PO DAILY 03/02/22 [History] Acetaminophen 325 mg [Tylenol 325 mg] 650 mg PO Q6H PRN PRN 04/08/23 [History] Clopidogrel Bisulfate [Clopidogrel] 75 mg PO DAILY 10/24/23 [History] Metoprolol Succinate 25 mg Xl* [Toprol-Xl 25MG Tablets] 12.5 mg PO DAILY 10/24/23 [History] hydrOXYzine pamoate [Hydroxyzine Pamoate] 50 mg PO BID PRN PRN 10/24/23 [History] Spironolactone 25 mg [Aldactone 25 MG] 25 mg PO DAILY 11/28/23 [History] Tramadol HCl 50 mg [Ultram 50 mg] 50 mg PO TID PRN PRN 11/28/23 [History] Ferrous Sulfate 325 mg [Feosol 325 mg] 325 mg PO DAILY 03/26/24 [History] PANTOPRAZOLE 40 mg Tablet [Protonix 40MG Tablet] 40 mg PO QAM 04/22/24 [History] Hx Tetanus, Diphtheria Vaccination/Date Given: No Hx Influenza Vaccination/Date Given: No Hx Pneumococcal Vaccination/Date Given: No Travel Risk - International Travel Have you traveled outside of the country in past 3 weeks: No - Emerging Infectious Disease Are you exhibiting symptoms associated with any current EIDs: Yes Symptoms: Abdominal Pain - Past Medical History Pertinent Past Medical History: Yes Neurological History: No Pertinent History ENT History: No Pertinent History Cardiac History: Arrhythmia, Hypertension Respiratory History: No Pertinent History Endocrine Medical History: No Pertinent History Musculoskeletal History: Arthritis GI Medical History: GI Bleed History: No Pertinent History Psycho-Social History: No Pertinent History Male Reproductive Disorders: No Pertinent History Other Medical History: A-FIB - Past Surgical History Past Surgical History: Yes Neuro Surgical History: No Pertinent History Cardiac: Cardiac Catheterization, Cardiac Stent, Other Respiratory: No Pertinent History Gastrointestinal: No Pertinent History Genitourinary: No Pertinent History Musculoskeletal: Orthopedic Surgery Male Surgical History: No Pertinent History Other Surgical History: 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 jul 2023 3 stents. watchman placed 03/2024 Significant Family History: no pertinent family hx - Social History Smoking Status: Former smoker Exposure to second hand smoke: No Drug Use: none Patient Lives Alone: Yes - Social Determinants of Health Will the patient participate in the screening: Yes Do you worry about a steady place to live?: No Do you have any problems with any of the following?: No known problems In the past 12 months,have you had to go without utilities?: No Transportation Issues: No Has anyone in your support network made you feel unsafe?: No Have you or anyone in your house had to go without enough: No - Review of Systems All Other Systems: Reviewed and Negative - Nursing Vital Signs Nursing Vital Signs: Initial Vital Signs Temperature 98 F 04/27/24 06:42 Pulse Rate 73 04/27/24 06:42 Respiratory Rate 22 04/27/24 06:42 Blood Pressure 223/112 04/27/24 06:42 O2 Sat by Pulse Oximetry 98 04/27/24 06:42 Pain Scale Pain Intensity 0 - Physical Exam General Appearance: mild distress Gastrointestinal/Abdomen Exam: distention, guarding, organomegaly (enlarged bladder), No rebound Neurologic Exam: alert, oriented x 3, cooperative Skin Exam: normal color, warm, dry SpO2 Interpretation: normal SpO2: 98 O2 Delivery: Room Air - Course Nursing assessment & vital signs reviewed: Yes Ordered Tests: Active Orders 24 hr Category Date Time Status Stone [Catheter-[place] Stone] STAT Care 04/27/24 07:30 Active BMP Stat Lab 04/27/24 08:50 Completed CBC W DIFF Stat Lab 04/27/24 08:00 Completed Medication Summary Discontinued Medications Generic Name Dose Route Start Last Admin Trade Name Vincent PRN Reason Stop Dose Admin Lidocaine HCl Confirm 04/27/24 06:37 Lidocaine Hcl 20 Mg/Ml Jelly Uro-Jet Administered 04/27/24 06:38 Dose 200 mg .ROUTE .STK-MED ONE Lidocaine HCl Confirm 04/27/24 06:51 Lidocaine Hcl 20 Mg/Ml Jelly Uro-Jet Administered 04/27/24 06:52 Dose 200 mg .ROUTE .STK-MED ONE Lidocaine HCl 200 mg 04/27/24 07:05 04/27/24 06:48 Lidocaine Hcl 20 Mg/Ml Jelly Uro-Jet TOP 04/27/24 07:06 200 mg STAT ONE Administration Lidocaine HCl 200 mg 04/27/24 07:08 04/27/24 07:34 Lidocaine Hcl 20 Mg/Ml Jelly Uro-Jet TOP 04/27/24 07:09 200 mg STAT ONE Administration Morphine Sulfate 2 mg 04/27/24 07:26 04/27/24 07:30 Morphine Sulfate 2 Mg/Ml Inj IM 04/27/24 07:27 2 mg STAT ONE Administration Morphine Sulfate Confirm 04/27/24 07:27 Morphine Sulfate 2 Mg/Ml Inj Administered 04/27/24 07:28 Dose 2 mg .ROUTE .STK-MED ONE Lab/Rad Data: Laboratory Result Diagrams 04/27/24 08:00 04/27/24 08:50 Laboratory Results 04/27/24 04/27/24 Range/Units 08:50 08:00 WBC 7.5 (4.23-9.07) x10^3/uL RBC 4.32 L (4.63-6.08) x10^6/uL Hgb 13.0 L (13.7-17.5) g/dL Hct 39.4 L (40.1-51.0) % MCV 91.2 (79.0-92.2) fL MCH 30.1 (25.7-32.2) pg MCHC 33.0 (32.3-36.5) g/dL RDW 14.0 (11.6-14.4) % Plt Count 262 (163-337) x10^3/uL MPV 9.8 (9.4-12.4) fL Gran % 85.1 H (34.0-67.9) % Immature Gran % (Auto) 0.4 (0.001-0.429) % Nucleat RBC Rel Count 0.0 (0.00-0.2) % Eos # (Auto) 0.15 (0.04-0.54) x10^3/uL Immature Gran # (Auto) 0.03 (0.001-0.031) x10^3u/L Absolute Lymphs (auto) 0.56 L (1.32-3.57) x10^3/uL Absolute Monos (auto) 0.36 (0.30-0.82) x10^3/uL Absolute Nucleated RBC 0.00 (0.00-0.012) x10^3u/L Lymphocytes % 7.4 L (21.8-53.1) % Monocytes % 4.8 L (5.3-12.2) % Eosinophils % 2.0 (0.8-7.0) % Basophils % 0.3 (0.2-1.2) % Absolute Granulocytes 6.41 H (1.78-5.38) x10^3/uL Basophils # 0.02 (0.01-0.08) x10^3/uL Sodium 144 (135-145) mmol/L Potassium 3.8 (3.5-5.1) mmol/L Chloride 108 H (98-107) mmol/L Carbon Dioxide 24 (22-30) mmol/L Anion Gap 15.5 H (5-15) MEQ/L BUN 14 (9-20) mg/dL Creatinine 1.02 (0.66-1.25) mg/dL Estimated GFR 72.0 ML/MIN Glucose 153 H (74-106) mg/dL Calcium 9.1 (8.4-10.2) mg/dL - Progress Progress: improved Progress Note: Patient had postoperative urinary retention from a Watchman procedure on 04/19/2024. He has had multiple trips to the emergency room during that time initially had an In-N-Out catheter placed, but continued to have retention issues so a Stone catheter was anchored and he was treated for urinary tract infection with levofloxacin. Yesterday his catheter was removed after completing his antibiotic treatment and has been unable to urinate since that time. Patient has suprapubic and urethral pain. Initial Stone catheter placement was unsuccessful so smallest coud catheter was obtained. Will obtain lab work to make sure his kidney and electrolytes are within normal limits. 04/27/24 07:55 04/27/24 08:02 Coude cath placement successful. Large blood clot was appreciated after anchoring stone. 04/27/24 09:13 Labs show Hb 13, normal Cr and electrolytes. Will DC home with stone. Patient has appointment with urology on May 14. Counseled pt/family regarding: lab results, diagnosis, need for follow-up Medical Desision Making - Diagnostic Testing Diagnostic test were ordered, analyzed, and reviewed by me: Yes Radiological Interpretation: Interpreted by me - Risk of complications Low Risk: Low risk of morbidity from additional dx testing or treatment - Departure Departure Disposition: Home Clinical Impression: Urinary retention, Enlarged prostate Condition: Good Critical Care Time: No Referrals: MARCELA BINGHAM MD [Primary Care Provider] - Follow up/PCP as directed Instructions: Urinary Retention (DC)
[2024-04-27 08:48] LABS: Absolute Neutrophil Ct (ANC) 6.41 x10^3/uL (1.78-5.38); BASOPHIL % 0.3 % (0.2-1.2); Basophil (Absolute #) 0.02 x10^3/uL (0.01-0.08); Eosinophil (Absolute #) 0.15 x10^3/uL (0.04-0.54); Hematocrit 39.4 % (40.1-51.0); IMMATURE GRAN # 0.03 x10^3u/L (0.001-0.031); IMMATURE GRAN % 0.4 % (0.001-0.429); Lymphocyte (Absolute #) 0.56 x10^3/uL (1.32-3.57); Lymphocytes % 7.4 % (21.8-53.1); Mean Cell Volume 91.2 fL (79.0-92.2); Mean Corpuscular Hemoglobin 30.1 pg (25.7-32.2); Mean Platelet Volume 9.8 fL (9.4-12.4); Monocyte (Absolute #) 0.36 x10^3/uL (0.30-0.82); Monocytes % 4.8 % (5.3-12.2); Neutrophil % 85.1 % (34.0-67.9); Platelet Count 262 x10^3/uL (163-337); Red Blood Count 4.32 x10^6/uL (4.63-6.08); White Blood Count 7.5 x10^3/uL (4.23-9.07)
[2024-04-27 08:59] LABS: ANION GAP 15.5 MEQ/L (5-15); Calcium 9.1 mg/dL (8.4-10.2); Creatinine 1 1.02 mg/dL (0.66-1.25); Potassium 3.8 mmol/L (3.5-5.1)
[2024-04-27 09:20] LABS: Slide Review 1 YES
[2024-04-27 10:05] VITALS: BP 173/87; PULSE 68; RESP 14; O2SAT 95
== END 2024-04-27 10:05 | disposition home or self-care (01) ==
LOC: ED 06:33
DX: N40.1 Benign prostatic hyperplasia with lower urinary tract symptoms (principal); R33.9 Retention of urine, unspecified; I10 Essential (primary) hypertension; Z79.02 Long term (current) use of antithrombotics/antiplatelets; Z79.899 Other long term (current) drug therapy
CPT/HCPCS: 36415; 51702; 80048; 85025; 96372; 99284; J2270